=== PATIENT | female | born 1995 | race Caucasian/White ===

== ENCOUNTER → 2019-08-28 08:18 | Outpatient (CLI) | payer MEDICAID, SELFPAY ==
--- NOTE | 2019-08-28 08:23 | US_ITS ---
PROCEDURE: US OB <= 14 WEEKS FETUS CLINICAL INDICATION: US OB Dates COMPARISON: No exams were available for comparison FINDINGS: There is a single live fetus in variable position. Average ultrasound age is 15 weeks 4 days with estimated due date by ultrasound of 02/15/2020. The following parameters are obtained: BPD 15 weeks/4 days, OFD 14 weeks/6 days, HC 15 weeks/1 day, AC 15 weeks/5 days, FL 15 weeks/3 days. Heart rate is 146 BPM. Placenta is anterior. Cervix is closed measuring 2.8 cm transabdominal IMPRESSION: Live IUP at 15 weeks 4 days Estimated due date by Ultrasound is 02/15/2020 Dictated by: Vini Morales MD 08/28/2019 11:27 Electronically signed by Vini Morales MD in [place] 08/28/2019 11:27
== END ==
PROVIDERS: PCP Nurse Practitioner Family; Visit Provider Nurse Practitioner Obstetrics & Gynecology
DX: O26.841 Uterine size-date discrepancy, first trimester (principal)
CPT/HCPCS: 76801

== ENCOUNTER → 2019-09-21 10:09 | Outpatient (CLI) | payer MEDICAID, SELFPAY ==
[2019-09-21 10:41] LABS: Basophils % 0.1 % (0.1-2.0); Eosinophils # 0.1 K/mm3 (0.0-0.4); Eosinophils % 0.4 % (0.1-12.0); Hematocrit 33.5 % (37.0-47.0); Hemoglobin 11.2 g/dL (12.2-16.2); Lymphocytes % 12.6 % (10-50); Mean Corpuscular HGB Conc 33.5 g/dL (31.8-35.4); Mean Corpuscular Hemoglobin 29.8 pg (27.0-31.2); Mean Corpuscular Volume 88.9 fl (81-99); Mean Platelet Volume 7.9 fl (7.4-10.4); Monocytes # 0.5 K/mm3 (0.1-1.0); Monocytes % 3.1 % (1.7-9.3); Neutrophils # 13.2 K/mm3 (1.8-7.8); Neutrophils % 83.8 % (37.0-80.0); Platelet Count 247 K/mm3 (142-424); Red Blood Count 3.76 M/mm3 (4.20-5.40); Red Cell Distribution Width 13.6 % (11.5-17.5); White Blood Count 15.7 K/mm3 (4.8-10.8)
[2019-09-21 10:56] LABS: MANUAL DIFFERENTIAL MANUAL DIFFERENTIAL (MANUAL DIFF)
[2019-09-21 12:54] LABS: Lymphocytes % 11 % (10-50); Monocytes % 2 % (2-9); Neutrophils % 87 % (42-76); Total Cells Counted 100
[2019-09-21 12:55] LABS: Platelet Estimate Normal; RBC Morphology Normal
[2019-09-22 08:43] LABS: Rapid Plasma Reagin Ab Titer Non Reactive (NonRea<1:1)
[2019-09-22 17:02] LABS: HIV Screen 4th Generation wRfx Non Reactive (Non Reactive); Hepatitis B Surface Antigen Negative (Negative); Hepatitis C Antibody <0.1 s/co ratio (0.0-0.9); Rubella Antibodies, IgG 1.75 index (Immune >0.99)
== END ==
PROVIDERS: Visit Provider Nurse Practitioner Obstetrics & Gynecology
DX: Z34.90 Encounter for supervision of normal pregnancy, unspecified, unspecified trimester (principal)
CPT/HCPCS: 36415; 85007; 85025; 86592; 86703; 86762; 86850; 87340; 87380; G0432

== ENCOUNTER → 2019-09-29 12:44 | Outpatient (CLI) | payer MEDICAID, SELFPAY ==
--- NOTE | 2019-09-29 12:44 | US_ITS ---
PROCEDURE: US OB /MATERNAL DETAIL CLINICAL INDICATION: 20 wk. u/s Anatomy scan COMPARISON: US OB <= 14 WEEKS FETUS from 08/28/2019 FINDINGS: Single viable intrauterine gestation. Cephalic position. Placenta: Anteriorplacenta grade 1. There is average amount fluid. The cervix appears satisfactory. Closed and measuring 3 cm in length. Complete survey performed and was unremarkable on the submitted images as in PACS. No discrete anomalies identified on survey imaging by technologist. Active fetus. Three-vessel cord with satisfactory umbilical cord insertion. 4- chamber heart noted. Survey of brain & ventricles Unremarkable. Face and neck survey unremarkable. Diaphragm and chest views unremarkable. Abdomen: Both kidneys noted and unremarkable. Stomach noted and satisfactory. Spine: Survey of the spine satisfactory with no anomalies identified nor imaged. Both arms and legs noted. Amniotic Fluid: Adequate. Maternal adnexa: No significant findings. Measurements: Average ultrasound age 20weeks 5days. Gestational Age 20 weeks 2 days Estimated due date by ultrasound age 0602/11/2020. Estimated weight 362g BPD = 20weeks 5days OFD = 21 weeks 2 days HC = 20weeks 2days AC = 20weeks 3days FL = 21weeks Growth Percentile= 61% Heart Rate = 138bpm Cerebellum = 19weeks 6days Humerus = 20weeks 3days HC/AC is 1.18 CI is 0.76 FL/BPD is 0.71 FL/AC is 0.23 IMPRESSION: Live intrauterine gestation with an average ultrasound age 20 weeks 5 days. No obvious anomalies. All parameters correlate. Please see above for detail. Dictated by: Vini Morales MD 09/29/2019 15:54 Electronically signed by Vini Morales MD in [place] 09/29/2019 15:54
== END ==
PROVIDERS: PCP Family Medicine; Visit Provider Nurse Practitioner Obstetrics & Gynecology
DX: Z34.90 Encounter for supervision of normal pregnancy, unspecified, unspecified trimester (principal)
CPT/HCPCS: 76811

== ENCOUNTER 2019-12-06 10:05 | Outpatient (CLI) | payer MEDICAID, SELFPAY ==
[2019-12-06 11:21] LABS: Glucose,Fasting 80 mg/dl (74-100)
[2019-12-06 12:06] VITALS: BP 137/76; PULSE 88; RESP 18; TEMP 36.6; O2SAT 97
[2019-12-06 12:13] LABS: Glucose 1 Hour 135 mg/dL (74-100)
== END 2019-12-06 12:06 | disposition home or self-care (01) ==
LOC: LAB 10:05 → INF 11:53
PROVIDERS: Visit Provider Nurse Practitioner Obstetrics & Gynecology
DX: Z34.90 Encounter for supervision of normal pregnancy, unspecified, unspecified trimester (principal)
CPT/HCPCS: 36415; 82951; 96372; J2790

== ENCOUNTER → 2020-01-11 12:41 | Outpatient (CLI) | payer MEDICAID, SELFPAY ==
--- NOTE | 2020-01-11 12:41 | US_ITS ---
PROCEDURE: US OB /MATERNAL DETAIL CLINICAL INDICATION: LGA Large for gestational age COMPARISON: US OB /MATERNAL DETAIL from 09/29/2019 FINDINGS: There is a single live intrauterine present. Cervix is closed and measures 3 cm. Fetus is in cephalic presentation. Placenta is anterior and grade 2. No previa or abruption. The following parameters are obtained: Measurements: Average ultrasound age 36weeks 4days. Gestational Age 36weeks 4days Estimated due date by ultrasound age 0602/04/2020. Estimated weight 2,829g this is 73 percentile BPD = 37weeks 6days OFD = 36 weeks 5 days HC = 36weeks 4days AC = 35weeks 6days FL = 35weeks 5days Growth Percentile= 54Percent% Heart Rate = 163bpm HC/AC is 1.01 CI is 0.83 FL/BPD is 0.75 FL/AC is 0.22 Amniotic fluid index is 18 cm Biophysical profile is 8 of 8 IMPRESSION: Live IUP at 36 weeks 4 days with an estimated weight 2829 g which is 73 percentile Normal OCRTES of 18 cm Biophysical profile 8 of 8 Dictated by: Vini Morales MD 01/11/2020 14:02 Electronically signed by Vini Morales MD in [place] 01/11/2020 14:02
== END ==
PROVIDERS: PCP Nurse Practitioner Obstetrics & Gynecology; Visit Provider Nurse Practitioner Obstetrics & Gynecology
DX: O36.60X0 Maternal care for excessive fetal growth, unspecified trimester, not applicable or unspecified (principal)
CPT/HCPCS: 76811; 76819

== ENCOUNTER → 2020-01-19 14:44 | Outpatient (CLI) | payer MEDICAID, SELFPAY | PROVIDERS: Visit Provider Nurse Practitioner Obstetrics & Gynecology | DX: Z34.90 Encounter for supervision of normal pregnancy, unspecified, unspecified trimester (principal) | CPT/HCPCS: 86403 ==

== ENCOUNTER 2020-01-30 12:28 | Outpatient (CLI) | payer MEDICAID, SELFPAY ==
[2020-01-30 12:37] VITALS: BMI 46.6
[2020-01-30 13:02] LABS: Microscopic, Urine URINE MICROSCOPIC (MICROSCOPIC)
[2020-01-30 13:06] LABS: Appearance,Urine CLOUDY (Clear); Bilirubin,Urine Negative (Negative); Blood, Urine TRACE-L (Negative); Color,Urine DK YELLOW (Yellow); Glucose,Urine (UA) Negative (Negative); Ketones,Urine Negative (Negative); Leukocyte Esterase,Urine 2+ (Negative); Nitrate,Urine Negative (Negative); Protein,Urine Negative (Negative); Specific Gravity, Urine >= 1.030 (1.005-1.030); Urobilinogen,Urine 0.2 EU/dl (0.2)
[2020-01-30 13:07] VITALS: BP 132/86; PULSE 123; RESP 20; TEMP 37.3; O2SAT 96; BMI 46.6
[2020-01-30 13:14] LABS: Fetal Membrane Rupture (Rapid) Negative (Negative)
[2020-01-30 13:16] LABS: Bacteria,Urine 1+ /lpf; Barbiturates Screen,Urine Negative ng/ml (<200); Benzodiazepines Screen,Urine Negative ng/ml (<200); WBC,Urine 20-50 #/hpf (0-3)
[2020-01-30 13:17] LABS: Amphetamine/Metha Screen,Urine Negative ng/ml (<1000)
[2020-01-30 13:18] LABS: Cannabinoid Screen,Urine Negative ng/ml (<50); Cocaine Screen,Urine Negative ng/ml (<300)
[2020-01-30 13:19] LABS: Methadone Screen,Urine Negative ng/ml (<300); Opiate Screen,Urine Negative ng/ml (<300)
[2020-01-30 13:20] LABS: Phencyclidine Screen,Urine Negative ng/ml (<25)
== END 2020-01-30 14:00 | disposition home or self-care (01) ==
LOC: OBOUT 12:34 → OB 12:34
PROVIDERS: Visit Provider Nurse Practitioner Obstetrics & Gynecology
DX: O60.03 Preterm labor without delivery, third trimester (principal); Z3A.38 38 weeks gestation of pregnancy
CPT/HCPCS: 59025; 80305; 81001; 84112; 87086

== ENCOUNTER → 2020-01-31 12:26 | Outpatient (CLI) | payer MEDICAID, SELFPAY ==
--- NOTE | 2020-01-31 12:26 | US_ITS ---
PROCEDURE: US OB BIOPHYSICAL PROFILE CLINICAL INDICATION: decreased movement Decreased movement TECHNIQUE: FINDINGS: The following parameters are obtained: Average ultrasound age is Average 37weeks 6days Estimated due date by ultrasound is 02/15/2020. Estimated weight is 3,344g. This is 47th percentile BPD: 38 weeks 0 days OFD: 38 weeks 1 day HC: 37 weeks 0 days AC: 38 weeks 1 day FL: 38 weeks 0 days heart rate: 142bpm bpm. HC/AC: 0.95 Cephalic index: 0.82 FL/BPD: 0.79 FL/AC: 0.22 Amniotic fluid index: 15.25cm Qualitative AFV: 2 breathing movements: 2 Gross body movements: 2 Tone: 2 Biophysical profile score: 8 The fetus is in cephalic presentation. Placenta is anterior and grade 2. Cervix is closed measuring 3.5 cm transabdominal of IMPRESSION: Live IUP which is in cephalic presentation with an average ultrasound age 37 weeks 6 days. weight is 3344 g which is 47th percentile. Biophysical profile is 8 of 8. Amniotic fluid index is 15 cm. Dictated by: Vini Morales MD 01/31/2020 13:20 Electronically signed by Vini Morales MD in [place] 01/31/2020 13:20
== END ==
PROVIDERS: Visit Provider Nurse Practitioner Obstetrics & Gynecology
DX: O36.8190 Decreased fetal movements, unspecified trimester, not applicable or unspecified (principal)
CPT/HCPCS: 76816; 76819

== ENCOUNTER 2020-02-05 05:31 | Inpatient (IN) | payer MEDICAID, SELFPAY ==
[2020-02-05 05:35] VITALS: BMI 46.0
[2020-02-05 06:24] VITALS: BP 135/85; PULSE 97; RESP 18; TEMP 36.9; O2SAT 97; BMI 46.0
[2020-02-05 06:42] LABS: Microscopic, Urine URINE MICROSCOPIC (MICROSCOPIC)
[2020-02-05 06:44] LABS: Appearance,Urine CLEAR (Clear); Bilirubin,Urine Negative (Negative); Blood, Urine TRACE-L (Negative); Color,Urine YELLOW (Yellow); Glucose,Urine (UA) Negative (Negative); Ketones,Urine TRACE (Negative); Leukocyte Esterase,Urine 1+ (Negative); Nitrate,Urine Negative (Negative); Protein,Urine Negative (Negative); Urobilinogen,Urine 0.2 EU/dl (0.2)
[2020-02-05 06:55] LABS: Bacteria,Urine 1+ /lpf; Benzodiazepines Screen,Urine Negative ng/ml (<200)
[2020-02-05 06:56] LABS: Amphetamine/Metha Screen,Urine Negative ng/ml (<1000)
[2020-02-05 06:57] LABS: Barbiturates Screen,Urine Negative ng/ml (<200); Cannabinoid Screen,Urine Negative ng/ml (<50)
[2020-02-05 06:58] LABS: Cocaine Screen,Urine Negative ng/ml (<300)
[2020-02-05 06:59] LABS: Methadone Screen,Urine Negative ng/ml (<300); Opiate Screen,Urine Negative ng/ml (<300)
[2020-02-05 07:00] LABS: Phencyclidine Screen,Urine Negative ng/ml (<25)
[2020-02-05 07:09] LABS: Basophils % 0.1 % (0.1-2.0); Eosinophils # 0.1 K/mm3 (0.0-0.4); Eosinophils % 0.8 % (0.1-12.0); Hematocrit 31.3 % (37.0-47.0); Hemoglobin 10.2 g/dL (12.2-16.2); Lymphocytes # 2.4 K/mm3 (0.7-4.5); Lymphocytes % 16.9 % (10-50); Mean Corpuscular HGB Conc 32.7 g/dL (31.8-35.4); Mean Corpuscular Hemoglobin 28.4 pg (27.0-31.2); Mean Platelet Volume 8.5 fl (7.4-10.4); Monocytes # 0.4 K/mm3 (0.1-1.0); Neutrophils # 11.4 K/mm3 (1.8-7.8); Neutrophils % 79.2 % (37.0-80.0); Platelet Count 220 K/mm3 (142-424); Red Cell Distribution Width 15.6 % (11.5-17.5); White Blood Count 14.4 K/mm3 (4.8-10.8)
--- NOTE | 2020-02-05 07:27 | HMH.LABNOT ---
Labor Note - Subjective: Date: 02/05/20 Time: 07:27 regular contraction - Objective: NST:: Reactive Contractions:: every 2-3 minutes Cervical Dilation:: 3-4 Effacement:: 90% Station: -1 Membranes: artificially ruptured Comment:: There was clear fluid - Fetus: Monitoring?: Yes monitoring type:: Internal and External Comment:: I inserted an IUPC - Assessment: Labor progressing?: Yes Cephalopelvic disproportion?: No Patient Problems: All Active Problems (Acute) - Plan: Anesthesia for epidural?: Yes Continue to labor down?: Yes Plan for ?: No Continue to monitor?: Yes Start pushing?: No
[2020-02-05 07:31] VITALS: BP 143/71; PULSE 87; RESP 18; TEMP 36.6; O2SAT 99
[2020-02-05 07:49] LABS: Coronavirus 19 IgG Antibody Negative (Negative); Coronavirus 19 IgM Antibody Negative (Negative)
--- NOTE | 2020-02-05 09:12 | HMH.ANESCL ---
[facility] Anesthesia Checklist - Structural Data Admitted From: Inpatient Planned Operative Procedure/s: labor epidural Consent for Planned Operative Procedure(s) Verified: Yes - Airway Assessment C-Spine Mobility Assessed: Yes TMJ Mobility Assessed: Yes Dentition: Good Dentition - Neurological Assessment Level of Consciousness: Awake, Alert, Appropriate - Anesthesia Plan Anesthesia Risk discussed: Yes Anesthesia Plan: Verified ASA Class: II Anesthesia Type: Epidural [facility] History I have reviewed the patient's past medical history: Yes Medical History: Reports:: MRSA Denies:: Diabetes Mellitus Type 2, Hypertension *Have you ever received a pneumonia vaccine?: No *Have you received a flu vaccine this season?: No Anesthesia experience/problems:: none Other Surgeries: Yes: No Previous Surgery. No: Amputation: No Fractures: No - *Social History Smoking Status: Current every day smoker Tobacco Type: cigarettes Alcohol Intake: never Substance Use Type: denies use *Occupational Status:: unemployed *Travel in the last 8 weeks: None Family Hx:: No significant family history Para: 0
--- NOTE | 2020-02-05 10:21 | HMH.LABNOT ---
Labor Note - Subjective: Date: 02/05/20 Time: 10:21 regular contraction - Objective: NST:: Reactive Contractions:: every 2-3 minutes Cervical Dilation:: 5 Effacement:: 100% Station: 0 Membranes: artificially ruptured - Fetus: Monitoring?: Yes monitoring type:: Internal and External - Assessment: Labor progressing?: Yes Cephalopelvic disproportion?: No Patient Problems: All Active Problems (Acute) - Plan: Anesthesia for epidural?: Yes Continue to labor down?: Yes Plan for ?: No Continue to monitor?: Yes Start pushing?: No
[2020-02-05 12:00] VITALS: BP 118/67; PULSE 87; TEMP 36.7
--- NOTE | 2020-02-05 13:52 | HMH.LABNOT ---
Labor Note - Subjective: Date: 02/05/20 Time: 12:05 regular contraction - Objective: NST:: Reactive Contractions:: every 2-3 minutes Cervical Dilation:: 6-7 Effacement:: 100% Station: 0 Membranes: artificially ruptured - Fetus: Monitoring?: Yes monitoring type:: Internal and External - Assessment: Labor progressing?: Yes Cephalopelvic disproportion?: No Patient Problems: All Active Problems (Acute) - Plan: Anesthesia for epidural?: Yes Continue to labor down?: Yes Plan for ?: No Continue to monitor?: Yes Start pushing?: No
--- NOTE | 2020-02-05 13:53 | HMH.LABNOT ---
Labor Note - Subjective: Date: 02/05/20 Time: 13:53 regular contraction - Objective: NST:: Reactive Contractions:: every 2-3 minutes Cervical Dilation:: 9-10 Effacement:: 100% Station: +1 Membranes: artificially ruptured - Fetus: Monitoring?: Yes monitoring type:: Internal and External - Assessment: Labor progressing?: Yes Cephalopelvic disproportion?: No Patient Problems: All Active Problems (Acute) - Plan: Anesthesia for epidural?: Yes Continue to labor down?: Yes Plan for ?: No Continue to monitor?: Yes Start pushing?: Yes Comment:: The head is well down but there are still an anterior lip. We allow the head to come down a little bit more and then will have her start pushing. We will plan a vaginal delivery.
[2020-02-05 14:30] LABS: Cord Blood PH 7.29 (7.35-7.45)
--- NOTE | 2020-02-05 16:06 | P.PCN_ITS ---
- Delivery Note Delivery Date:: 02/05/20 Delivery Time:: 14:08 Anesthesia Type: Epidural Was labor medically induced?: Yes Induction method: per pitocin protocol Gestational age (weeks): 39 Infant delivered prior to 39 weeks?: No Infant Gender: Male at 1 minute: 6 at 5 minutes: 8 Delivery Procedure:: She is a 24-year-old 1 para 0 at 39 weeks gestational age. She had a lot of pressure and was found to be 3 to 4 cm dilated. As result of that we elected to induce her labor. She was started on IV oxytocin had her membranes ruptured. She progressed under labor epidural to full dilation and delivered spontaneously a liveborn male child at 2:08 PM in the afternoon of February 05, 2020. On deliver the head there was a loose nuchal cord which was easily reduced. This was followed by the anterior shoulder and the rest the 's body atraumatically. The baby was quite vigorous so we allowed the cord to continue to pulsate for approximately 1 minute. The cord was then doubly clamped and cut and the was placed on the mother's abdomen for further care. The nurse assigned Apgars of 6 at 1 minute and 8 at 5 minutes. We then obtained cord blood as well as cord pH. She received IV oxytocin using gentle traction on the cord and countertraction on the fundus I was able to easily deliver the placenta intact. Had a normal three-vessel cord. She had a first-degree vaginal laceration that was repaired with interrupted 3-0 Vicryl Rapide suture. She has O Rh- blood, was rubella immune and was group B streptococcus negative. She plans to bottlefeed. Her telecom sales consultant is Dr. Mari. Estimated blood loss was approximately 500 cc. Laceration:: vaginal Placental Delivery Description: Spontaneous
[2020-02-05 16:10] VITALS: BP 115/63; PULSE 93; RESP 18; TEMP 37.2; O2SAT 96
[2020-02-05 20:33] VITALS: BP 115/61; PULSE 90; RESP 18; TEMP 37; O2SAT 98
[2020-02-06 03:58] VITALS: BP 105/63; PULSE 85; RESP 16; TEMP 36.9; O2SAT 98
[2020-02-06 06:11] LABS: Hematocrit 26.8 % (37.0-47.0)
[2020-02-06 07:47] VITALS: BP 127/66; PULSE 98; RESP 18; TEMP 36.7; O2SAT 98
--- NOTE | 2020-02-06 09:03 | HMH.ACPN2 ---
Internal Medicine - PN: Subj *Date: 02/06/20 *Time: 09:03 Interval history: She is doing well this morning. She is eating and drinking and ambulating. She is breast-feeding. Her lochia is normal. Her pain is well controlled. Exam Vital signs and Labs for Last 24 Hours: Temp Pulse Resp BP Pulse Ox 98.1 F 98 H 18 127/66 98 02/06/20 07:47 02/06/20 07:47 02/06/20 07:47 02/06/20 07:47 02/06/20 07:47 Laboratory Results - last 24 hr 02/05/20 14:20: Cord ABG pH 7.29 L 02/06/20 05:50: Hgb 9.0 L D, Hct 26.8 L I & O for Last 24 hours: Intake & Output 02/03/20 02/04/20 02/05/20 02/06/20 11:59 11:59 11:59 11:59 Weight 236 lb Microbiology Reports for the Last 24 Hours: Microbiology 02/05/20 05:55 Urine,Clean Catch Urine Culture - Final Multiple organisms, suggests contamination. - Constitutional no acute distress - *Routine HEENT Exam Head: Present: normocephalic Eye: Present: EOMI, PERRL ENT: Present: mucous membranes moist Assessment and Plan (1) Normal delivery Current visit: Yes Status: Acute Category: Medical Code(s): O80 - Encounter for full-term uncomplicated delivery - Assessment and plan all Dx Assessment and Plan for all problems:: She is doing well this morning. We will plan to send her home tomorrow.
[2020-02-06 12:00] VITALS: BP 111/62; PULSE 88; RESP 16; TEMP 36.8; O2SAT 98
[2020-02-06 16:42] VITALS: BP 115/64; PULSE 79; RESP 18; TEMP 37.3; O2SAT 98
--- NOTE | 2020-02-07 08:22 | HMH.DCSUM ---
General - General Admission date:: 02/05/20 Discharge date: 02/07/20 HPI HPI: She is a 24-year-old 1 now para 1 who is 39 weeks gestational age. She was having contractions and pressure and as result of that we elected to induce her labor at term. Hospital Course Hospital Course: She was started on IV oxytocin had her membranes ruptured. Under labor epidural she progressed to full dilation and delivered spontaneously a liveborn male child at 2:08 PM in the afternoon of February 05, 2020. The baby was a liveborn male child weighing 8 pounds 9 ounces and was 19-1/2 inches long. He had Apgars of 6 at 1 minute and 8 at 5 minutes. She has done well and has remained afebrile with her hospitalization. She is eating and drinking and ambulating. She is breast-feeding. Her intelligence officer Dr. Mari. She has O Rh- blood, she is rubella immune and was group B streptococcus negative. Her baby had Rh- blood so she did not require RhoGam. She is discharged home to follow-up with me in approximately 2 weeks time. She will continue with her vitamins and iron. She was given the usual instructions with respect to limiting her activity, driving and sexual activity. She is taking idox-iet-qtzhsmu analgesics. Her condition on discharge is stable and improved. Rhogam Administration: Not Indicated Objective Vital signs: Temp Pulse Resp BP Pulse Ox 99.2 F 79 18 115/64 98 02/06/20 16:42 02/06/20 16:42 02/06/20 16:42 02/06/20 16:42 02/06/20 16:42 no acute distress - *Routine HEENT Exam Head: Present: normocephalic Eye: Present: EOMI, PERRL ENT: Present: mucous membranes moist DS: Diagnosis - Discharge Diagnosis (1) Normal delivery Status: Acute Discharge Plan - Patient Discharge Instructions ACTIVITY: No heavy lifting DIET: continue same diet - Follow up Plan Disposition: Home, Self-Prison Medications: Home Medications Medication Instructions Recorded Confirmed Type prenat.vits,brandi,[id number] 1 tab PO DAILY 08/24/19 02/05/20 History Aspirin 81 mg PO DAILY 01/30/20 02/05/20 History Ferrous Sulfate 325 mg PO DAILY 01/30/20 02/05/20 History Prescriptions/Medication Reconciliation: Continued prenat.vits,brandi,[id number]-[id number] 1 tab PO DAILY Aspirin 81 mg PO DAILY Ferrous Sulfate 325 mg PO DAILY - Problem Reconciliation Problems Reviewed?: Yes
[2020-02-07 08:33] VITALS: BP 133/76; PULSE 95; RESP 18; TEMP 36.8; O2SAT 98
== END 2020-02-07 11:00 | disposition home or self-care (01) | DRG 807 ==
PROVIDERS: Admitting Provider Nurse Practitioner Obstetrics & Gynecology; Visit Provider Nurse Practitioner Obstetrics & Gynecology
DX: O70.0 First degree perineal laceration during delivery (principal); Z37.0 Single live birth; Z3A.39 39 weeks gestation of pregnancy
CPT/HCPCS: 59409; 36415; 59025; 80305; 81001; 82800; 85014; 85018; 85025; 86328; 86850; 87086; 90715; 94761; C1758

== ENCOUNTER 2020-02-09 23:18 | Emergency (ER) | payer MEDICAID, SELFPAY ==
[2020-02-09 23:21] VITALS: BP 140/90; PULSE 110; RESP 16; TEMP 39.2; O2SAT 99; BMI 44.9
--- NOTE | 2020-02-09 23:41 | HMH.EDFEV ---
ED Disposition Clinical Impression: SIRS (systemic inflammatory response syndrome) UTI (urinary tract infection) Qualifiers: Urinary tract infection type: site unspecified Hematuria presence: without hematuria Qualified Code(s): N39.0 - Urinary tract infection, site not specified Disposition: Home, Self-Care Condition on Discharge: Good Instructions: DI for Fever (Symptom) -- Adult Additional Instructions: fluids and use meds as directed and call ob for follow up and culture results Prescriptions: cephALEXin [Keflex 500mg Cap] 500 mg PO TID #30 cap Transmission Status: Pending to [facility] Referrals: Provider,Referral, [Primary Care Provider] - - Critical Care Critical Care Time: No Attestation: On 02/09/20, the high probability of a clinically significant, sudden or life threatening deterioration of the following system(s) required my full and direct attention, intervention and personal management. The time I documented below is in addition to time spent performing reported procedures but includes the following listed in this critical care notation. Medical Decision Making - Medical Records Medical records reviewed: Yes: I reviewed the patient's medical records. - Jamie Inquiry Pt receiving controlled substance: No Vital Signs: 02/09/20 23:21 02/09/20 23:55 02/10/20 00:03 Temperature 102.5 F H Temperature Source Oral Pulse Rate [Left Radial] 110 H 82 84 Respiratory Rate 16 18 18 Blood Pressure [Right Arm] 140/90 133/78 127/81 Blood Pressure Mean [Right Arm] 106 96 96 Blood Pressure Source [Right Arm] Automatic Cuff Blood Pressure Position [Right Arm] Sitting 02 Sat by Pulse Oximetry 99 100 100 Oxygen Delivery Method Room Air Room Air Room Air - Lab Data Lab results reviewed: Yes: I reviewed the patient's lab results. Lab Results 02/09/20 23:40: WBC 13.8 H, RBC 3.17 L, Hgb 9.0 L, Hct 28.4 L, MCV 89.5, MCH 28.3, MCHC 31.6 L, RDW 15.9, Plt Count 235, MPV 8.1, Neut % (Auto) 78.8, Lymph % (Auto) 14.4, [place] % (Auto) 5.1, Eos % (Auto) 1.6, Baso % (Auto) 0.2, Neut # (Auto) 10.8 H, Lymph # (Auto) 2.0, [place] # (Auto) 0.7, Eos # (Auto) 0.2, Baso # (Auto) 0.0 02/09/20 23:40: Sodium 135 L, Potassium 3.6, Chloride 104, Carbon Dioxide 25, Anion Gap 9.6, BUN 5 L, Creatinine 0.70, Estimated Creat Clear 91, Estimated GFR 105, Est GFR ( Amer) 127, Glucose 98, Calcium 8.3 L, Total Bilirubin 0.3, AST 44 H, ALT 52, Alkaline Phosphatase 112, Total Protein 6.3, Albumin 3.4 L, Globulin 2.9, Albumin/Globulin Ratio 1.2 02/09/20 23:40: Lactate 1.2 02/09/20 23:49: Urine Color Yellow, Urine Appearance Clear, Urine pH 7.0, Ur Specific [place] 1.020, Urine Protein Trace, Urine Glucose (UA) Negative, Urine Ketones Negative, Urine Blood 3+, Urine Nitrate Negative, Urine Bilirubin Negative, Urine Urobilinogen 1.0, Ur Leukocyte Esterase 2+ A, Urine RBC 50-100, Urine WBC 50-100, Ur Squamous Epith Cells 5-10 Result diagrams: 02/09/20 23:40 02/09/20 23:40 Orders (Tests/Meds): ED MEDICATIONS Generic Name Dose Route Start Last Admin Trade Name Freq PRN Reason Stop Dose Admin Sodium Chloride 1,000 mls @ 999 mls/hr 02/09/20 23:45 02/09/20 23:41 Sod Chlor 0.9% 1000ml Bag IV 02/10/20 00:45 999 mls/hr .Q1H1M APRIL Administration Ceftriaxone Sodium 1 gm/ 50 mls @ 100 mls/hr 02/10/20 00:45 Sodium Chloride IV 02/24/20 00:44 Q24H APRIL Protocol Discontinued Medications Generic Name Dose Route Start Last Admin Trade Name Freq PRN Reason Stop Dose Admin Acetaminophen 1,000 mg 02/09/20 23:39 02/09/20 23:40 Tylenol 500mg Tablet PO 02/09/20 23:40 1,000 mg ONCE ONE Administration ORDERS Category Date Time Status Blood Culture Stat Micro 02/09/20 23:40 Received Urine Culture Stat Micro 02/09/20 23:49 Received Fever HPI - General Chief Complaint: Fever Stated Complaint: Headache;Fever (earlier),dizziness, Gave Mon Time Seen by Provider: 02/09/20 23
[2020-02-09 23:55] VITALS: BP 133/78; PULSE 82; RESP 18; O2SAT 100
[2020-02-09 23:57] LABS: Microscopic, Urine URINE MICROSCOPIC (MICROSCOPIC)
[2020-02-09 23:59] LABS: Basophils % 0.2 % (0.1-2.0); Eosinophils # 0.2 K/mm3 (0.0-0.4); Eosinophils % 1.6 % (0.1-12.0); Hematocrit 28.4 % (37.0-47.0); Lymphocytes % 14.4 % (10-50); Mean Corpuscular HGB Conc 31.6 g/dL (31.8-35.4); Mean Corpuscular Hemoglobin 28.3 pg (27.0-31.2); Mean Corpuscular Volume 89.5 fl (81-99); Mean Platelet Volume 8.1 fl (7.4-10.4); Monocytes # 0.7 K/mm3 (0.1-1.0); Monocytes % 5.1 % (1.7-9.3); Neutrophils # 10.8 K/mm3 (1.8-7.8); Neutrophils % 78.8 % (37.0-80.0); Platelet Count 235 K/mm3 (142-424); Red Blood Count 3.17 M/mm3 (4.20-5.40); Red Cell Distribution Width 15.9 % (11.5-17.5); White Blood Count 13.8 K/mm3 (4.8-10.8)
[2020-02-10 00:03] VITALS: BP 127/81; PULSE 84; RESP 18; O2SAT 100
[2020-02-10 00:03] LABS: Appearance,Urine CLEAR (Clear); Bilirubin,Urine Negative (Negative); Blood, Urine 3+ (Negative); Color,Urine YELLOW (Yellow); Glucose,Urine (UA) Negative (Negative); Ketones,Urine Negative (Negative); Leukocyte Esterase,Urine 2+ (Negative); Nitrate,Urine Negative (Negative); Protein,Urine TRACE (Negative)
[2020-02-10 00:07] LABS: Alanine Aminotransferase 52 U/L (12-78); Albumin Level 3.4 g/dl (3.5-5.0); Albumin/Globulin Ratio 1.2 (1.1-1.8); Alkaline Phosphatase 112 U/L (38-126); Anion Gap 9.6 mEq/L (5-15); Aspartate Amino Transferase 44 U/L (14-36); Bilirubin,Total 0.3 mg/dl (0.2-1.3); Blood Urea Nitrogen 5 mg/dl (7-17); Calcium 8.3 mg/dl (8.4-10.2); Carbon Dioxide 25 mmol/L (22.0-30.0); Chloride 104 mmol/L (98-107); Creatinine Clearance Estimated 91 mL/min (50-200); Estimated Glomerular Filt Rate 105 ml/min (>60); GFR (African American) 127 ML/MIN (>60); Globulin 2.9 g/dL (1.3-3.2); Glucose 98 mg/dl (74-100); Lactic Acid 1.2 mmol/L (0.7-2.1); Potassium 3.6 mmoL/L (3.5-5.1); Sodium 135 mmol/L (136-145); Total Protein,Serum 6.3 g/dl (6.3-8.2)
[2020-02-10 00:11] LABS: RBC,Urine 50-100 #/hpf (0-3); WBC,Urine 50-100 #/hpf (0-3)
[2020-02-10 00:30] VITALS: TEMP 37.5
--- NOTE | 2020-02-10 00:55 | PC.NURSE ---
pt transported to radiology via wheelchair.
[2020-02-10 01:17] VITALS: BP 119/72; PULSE 97; RESP 16; TEMP 37.2; O2SAT 98
== END 2020-02-10 01:21 | disposition home or self-care (01) ==
PROVIDERS: Emergency Provider Emergency Medicine
DX: N39.0 Urinary tract infection, site not specified (principal); R65.10 Systemic inflammatory response syndrome (SIRS) of non-infectious origin without acute organ dysfunction
CPT/HCPCS: 80053; 81001; 83605; 85025; 87040; 87086; 96365; 96367; 99284

== ENCOUNTER 2021-02-11 10:43 | Emergency (ER) | payer MEDICAID, SELFPAY ==
[2021-02-11 10:46] VITALS: BP 124/79; PULSE 88; RESP 20; TEMP 37; O2SAT 100; BMI 42.9
--- NOTE | 2021-02-11 10:51 | HMH.EDGENADL ---
ED Disposition Clinical Impression: Pelvic pain Qualifiers: Weeks of gestation: less than 8 weeks Qualified Code(s): Z3A.01 - Less than 8 weeks gestation of Disposition: Home, Self-Care Condition on Discharge: Good Additional Instructions: Follow-up urine culture results from Dr. Patel for your primary care provider in 2 to 3 days. Return emergency department for any severe abdominal pain or heavy vaginal bleeding. Referrals: Provider,Referral, [Primary Care Provider] - - Critical Care Critical Care Time: No Attestation: On , the high probability of a clinically significant, sudden or life threatening deterioration of the following system(s) required my full and direct attention, intervention and personal management. The time I documented below is in addition to time spent performing reported procedures but includes the following listed in this critical care notation. Medical Decision Making - Medical Records Medical records reviewed: Yes: I reviewed the patient's medical records. MR Comment: Reviewed prior urine culture results, all have shown multiple organisms suggesting contamination. - Jamie Inquiry Pt receiving controlled substance: No Vital Signs: 02/11/21 10:46 Temperature 98.6 F Temperature Source Oral Pulse Rate [Left Radial] 88 Respiratory Rate 20 Blood Pressure [Right Arm] 124/79 Blood Pressure Mean [Right Arm] 94 Blood Pressure Source [Right Arm] Automatic Cuff Blood Pressure Position [Right Arm] Sitting 02 Sat by Pulse Oximetry 100 Oxygen Delivery Method Room Air - Lab Data Lab Results 02/11/21 11:00: Urine Color Yellow, Urine Appearance Clear, Urine pH 6.5, Ur Specific [place] 1.020, Urine Protein Negative, Urine Glucose (UA) Negative, Urine Ketones Negative, Urine Blood Negative, Urine Nitrate Negative, Urine Bilirubin Negative, Urine Urobilinogen 0.2, Ur Leukocyte Esterase 1+ A, Urine RBC None, Urine WBC 5-10, Ur Squamous Epith Cells 3-5, Urine Bacteria 1+ 02/11/21 11:00: Urine HCG, Qual Positive 02/11/21 11:00: WBC 8.9, RBC 4.52, Hgb 13.5, Hct 40.0, MCV 88.3, MCH 29.8, MCHC 33.7, RDW 13.2, Plt Count 246, MPV 7.8, Neut % (Auto) 65.0, Lymph % (Auto) 26.2, [place] % (Auto) 6.2, Eos % (Auto) 2.3, Baso % (Auto) 0.3, Neut # (Auto) 5.8, Lymph # (Auto) 2.3, [place] # (Auto) 0.6, Eos # (Auto) 0.2, Baso # (Auto) 0.0 02/11/21 11:00: HCG, Quant 1889 H Result diagrams: 02/11/21 11:00 Orders (Tests/Meds): ORDERS Category Date Time Status Urine Culture Stat Micro 02/11/21 11:00 Received US OB transvaginal Stat Ultrasound 02/11/21 11:17 Ordered - US Data US Images: Pelvis Findings Narrative: As per [facility] procedure, ultrasound report received from pet care technician: Very small gestational sac in uterus. Small ovarian cyst. No pole or yolk sac seen. General Adult HPI - General Stated complaint: weakness, abdominal pain Time Seen by Provider: 02/11/21 10:52 - History of Present Illness HPI narrative: Intermittent sharp suprapubic pains that last a few seconds for the past couple of days. Not currently in pain. No lightheadedness for 1 week. Took 2 home test yesterday that was positive. Last menstrual period the end of November. If , currently is 2, para 1. No other symptoms, no vaginal bleeding, no fever, no vomiting, no urinary symptoms, but wants to be checked for urinary tract infection. - Related Data Previous Rx's Medication Instructions Recorded prenat.vits,brandi,[id number]-[id number]-[id number] 1 tab PO DAILY #30 tab 12/05/20 Allergies Allergy/AdvReac Type Severity Reaction Status Date / Time No Known Allergies Allergy Verified 12/05/20 08:33 [facility] History - Hepatitis A Screen Attestation statement:: This patient has been screened for Hepatitis A risk factors. I have reviewed the patient's past medical history: Yes Medical History: Reports:: MRSA Denies:: Diabetes Mellitus Type 2, Hypertension O
[2021-02-11 11:11] LABS: Microscopic, Urine URINE MICROSCOPIC (MICROSCOPIC)
[2021-02-11 11:15] LABS: Appearance,Urine CLEAR (Clear); Bilirubin,Urine Negative (Negative); Blood, Urine Negative (Negative); Color,Urine YELLOW (Yellow); Glucose,Urine (UA) Negative (Negative); Ketones,Urine Negative (Negative); Leukocyte Esterase,Urine 1+ (Negative); Nitrate,Urine Negative (Negative); PH,Urine 6.5 (5.0-8.5); Protein,Urine Negative (Negative); Urobilinogen,Urine 0.2 EU/dl (0.2)
[2021-02-11 11:16] LABS: Basophils % 0.3 % (0.1-2.0); Eosinophils # 0.2 K/mm3 (0.0-0.4); Eosinophils % 2.3 % (0.1-12.0); Hemoglobin 13.5 g/dL (12.2-16.2); Lymphocytes # 2.3 K/mm3 (0.7-4.5); Lymphocytes % 26.2 % (10-50); Mean Corpuscular HGB Conc 33.7 g/dL (31.8-35.4); Mean Corpuscular Hemoglobin 29.8 pg (27.0-31.2); Mean Corpuscular Volume 88.3 fl (81-99); Mean Platelet Volume 7.8 fl (7.4-10.4); Monocytes # 0.6 K/mm3 (0.1-1.0); Monocytes % 6.2 % (1.7-9.3); Neutrophils # 5.8 K/mm3 (1.8-7.8); Platelet Count 246 K/mm3 (142-424); Red Blood Count 4.52 M/mm3 (4.20-5.40); Red Cell Distribution Width 13.2 % (11.5-17.5); Urine Pregnancy, HCG Qual. Positive (Negative); White Blood Count 8.9 K/mm3 (4.8-10.8)
--- NOTE | 2021-02-11 11:17 | US_ITS ---
PROCEDURE: US OB TRANSVAGINAL CLINICAL INDICATION: pelvic pain, , r/o ectopic COMPARISON: US US OB BIOPHYSICAL PROFILE from 01/31/2020 FINDINGS: There is a small anechoic sac within the endometrial canal. This measures 9 x 4 mm. No yolk sac or pole identified. There is a small left ovarian cyst of 14 mm. No cul-de-sac fluid evident. Bilateral ovarian blood flow is noted. IMPRESSION: Small anechoic sac present but no pole or yolk sac. Cannot confirm viability. Suggest short-term follow-up. Ectopic is not excluded based on these findings. Please correlate with follow-up beta HCG and ultrasound Dictated by: Vini Morales MD 02/11/2021 13:22 Vini Morales MD in [place] 02/11/2021 13:22
--- NOTE | 2021-02-11 11:17 | PC.NURSE ---
CAlled radiology to notify or US order
[2021-02-11 11:24] LABS: Bacteria,Urine 1+ /lpf
--- NOTE | 2021-02-11 11:25 | PC.NURSE ---
pt to radiology
[2021-02-11 11:37] LABS: HCG,Quantitative 1889 mIU/ml (0-5.42)
[2021-02-11 11:59] VITALS: BP 107/73; PULSE 84; RESP 19; TEMP 37; O2SAT 100
== END 2021-02-11 12:01 | disposition home or self-care (01) ==
PROVIDERS: Emergency Provider Emergency Medicine
DX: R10.2 Pelvic and perineal pain (principal); Z34.01 Encounter for supervision of normal first pregnancy, first trimester; F17.210 Nicotine dependence, cigarettes, uncomplicated
CPT/HCPCS: 76817; 81001; 81025; 84702; 85025; 87086; 99283

== ENCOUNTER 2021-02-24 00:21 | Emergency (ER) | payer MEDICAID, SELFPAY ==
[2021-02-24 00:23] VITALS: BP 126/79; PULSE 80; RESP 16; TEMP 37.2; O2SAT 97; BMI 40.6
[2021-02-24 00:58] LABS: Microscopic, Urine URINE MICROSCOPIC (MICROSCOPIC)
[2021-02-24 01:03] LABS: Basophils % 0.3 % (0.1-2.0); Eosinophils # 0.3 K/mm3 (0.0-0.4); Eosinophils % 2.5 % (0.1-12.0); Hematocrit 37.5 % (37.0-47.0); Hemoglobin 12.5 g/dL (12.2-16.2); Lymphocytes # 3.4 K/mm3 (0.7-4.5); Lymphocytes % 26.8 % (10-50); Mean Corpuscular HGB Conc 33.4 g/dL (31.8-35.4); Mean Corpuscular Hemoglobin 29.5 pg (27.0-31.2); Mean Corpuscular Volume 88.4 fl (81-99); Mean Platelet Volume 7.7 fl (7.4-10.4); Monocytes # 0.5 K/mm3 (0.1-1.0); Monocytes % 3.6 % (1.7-9.3); Neutrophils # 8.5 K/mm3 (1.8-7.8); Neutrophils % 66.8 % (37.0-80.0); Platelet Count 224 K/mm3 (142-424); Red Blood Count 4.24 M/mm3 (4.20-5.40); Red Cell Distribution Width 13.5 % (11.5-17.5); White Blood Count 12.7 K/mm3 (4.8-10.8)
[2021-02-24 01:08] LABS: Appearance,Urine SL CLOUDY (Clear); Bilirubin,Urine Negative (Negative); Blood, Urine 2+ (Negative); Color,Urine YELLOW (Yellow); Glucose,Urine (UA) Negative (Negative); Ketones,Urine Negative (Negative); Leukocyte Esterase,Urine TRACE (Negative); Nitrate,Urine Negative (Negative); PH,Urine 5.5 (5.0-8.5); Protein,Urine Negative (Negative); Specific Gravity, Urine >= 1.030 (1.005-1.030); Urobilinogen,Urine 0.2 EU/dl (0.2)
[2021-02-24 01:09] LABS: Alanine Aminotransferase 11 U/L (12-78); Albumin Level 4.5 g/dl (3.5-5.0); Albumin/Globulin Ratio 1.7 (1.1-1.8); Alkaline Phosphatase 71 U/L (38-126); Anion Gap 11.8 mEq/L (5-15); Aspartate Amino Transferase 30 U/L (14-36); Bilirubin,Total 0.3 mg/dl (0.2-1.3); Blood Urea Nitrogen 14 mg/dl (7-17); Calcium 8.8 mg/dl (8.4-10.2); Carbon Dioxide 25 mmol/L (22.0-30.0); Chloride 104 mmol/L (98-107); Creatinine Clearance Estimated 186 mL/min (50-200); Estimated Glomerular Filt Rate 104 ml/min (>60); GFR (African American) 125 ML/MIN (>60); Globulin 2.7 g/dL (1.3-3.2); Glucose 96 mg/dl (74-100); Potassium 3.8 mmoL/L (3.5-5.1); Sodium 137 mmol/L (136-145); Total Protein,Serum 7.2 g/dl (6.3-8.2)
[2021-02-24 01:10] LABS: Urine Pregnancy, HCG Qual. Positive (Negative)
[2021-02-24 01:24] LABS: Bacteria,Urine 3+ /lpf; Mucus,Urine 1+ /lpf
[2021-02-24 01:27] LABS: HCG,Quantitative 2945 mIU/ml (0-5.42)
--- NOTE | 2021-02-24 01:38 | US_ITS ---
PROCEDURE INFORMATION: Exam: US , Transvaginal Exam date and time: 02/24/2021 1:38 AM Age: 25 years old Clinical indication: Lmp or gestational age (in weeks): Lmp: 12/08/20; Other: Vaginal bleeding; ; Additional info: Vaginal bleeding 6 weeks preg TECHNIQUE: Imaging protocol: Real-time transvaginal obstetrical ultrasound of the maternal pelvis with image documentation. Transvaginal imaging was used for better evaluation of the fetus, adnexa, and/or cervix. COMPARISON: US OB TRANSVAGINAL 02/11/2021 11:31 AM FINDINGS: Gestation: There is a gestational sac within the uterus but no pole or heart activity are seen on this exam. Both ovaries appear normal. No free fluid in the cul-de-sac. IMPRESSION: Probable impending spontaneous .
[2021-02-24 01:58] VITALS: BP 112/73; PULSE 69; O2SAT 98
[2021-02-24 03:00] VITALS: BP 125/73; PULSE 68; O2SAT 98
[2021-02-24 03:30] VITALS: BP 112/70; PULSE 62; O2SAT 98
--- NOTE | 2021-02-24 04:05 | HMH.EDPREG ---
ED Disposition Clinical Impression: Threatened Qualifiers: Weeks of gestation: less than 8 weeks Qualified Code(s): Z3A.01 - Less than 8 weeks gestation of Disposition: Home, Self-Care Condition on Discharge: Fair Instructions: Threatened Miscarriage Additional Instructions: call dr patel this am Referrals: Provider,MD Estelita [Primary Care Provider] - Bruce Patel MD [Staff Physician] - - Critical Care Critical Care Time: No Attestation: On 02/24/21, the high probability of a clinically significant, sudden or life threatening deterioration of the following system(s) required my full and direct attention, intervention and personal management. The time I documented below is in addition to time spent performing reported procedures but includes the following listed in this critical care notation. Medical Decision Making - Medical Records Medical records reviewed: Yes: I reviewed the patient's medical records. - Jamie Inquiry Pt receiving controlled substance: No Vital Signs: 02/24/21 00:23 02/24/21 01:58 02/24/21 03:00 Temperature 98.9 F Temperature Source Oral Pulse Rate 69 68 Pulse Rate [Right] 80 Respiratory Rate 16 Blood Pressure 112/73 125/73 Blood Pressure [Right Arm] 126/79 Blood Pressure Mean [Right Arm] 94 02 Sat by Pulse Oximetry 97 98 98 02/24/21 03:30 Temperature Temperature Source Pulse Rate 62 Pulse Rate [Right] Respiratory Rate Blood Pressure 112/70 Blood Pressure [Right Arm] Blood Pressure Mean [Right Arm] 02 Sat by Pulse Oximetry 98 - Lab Data Lab results reviewed: Yes: I reviewed the patient's lab results. Lab Results 02/24/21 00:30: Urine Color Yellow, Urine Appearance Sl cloudy, Urine pH 5.5, Ur Specific [place] >= 1.030, Urine Protein Negative, Urine Glucose (UA) Negative, Urine Ketones Negative, Urine Blood 2+, Urine Nitrate Negative, Urine Bilirubin Negative, Urine Urobilinogen 0.2, Ur Leukocyte Esterase Trace, Urine RBC 10-20, Urine WBC 10-20, Ur Squamous Epith Cells 5-10, Urine Bacteria 3+, Urine Mucus 1+ 02/24/21 00:30: Urine HCG, Qual Positive 02/24/21 00:40: Blood Type O Negative, Antibody Screen Negative, Screen Negative 02/24/21 00:40: WBC 12.7 H, RBC 4.24, Hgb 12.5, Hct 37.5, MCV 88.4, MCH 29.5, MCHC 33.4, RDW 13.5, Plt Count 224, MPV 7.7, Neut % (Auto) 66.8, Lymph % (Auto) 26.8, Gem % (Auto) 3.6, Eos % (Auto) 2.5, Baso % (Auto) 0.3, Neut # (Auto) 8.5 H, Lymph # (Auto) 3.4, Gem # (Auto) 0.5, Eos # (Auto) 0.3, Baso # (Auto) 0.0 02/24/21 00:40: Sodium 137, Potassium 3.8, Chloride 104, Carbon Dioxide 25, Anion Gap 11.8, BUN 14, Creatinine 0.70, Estimated Creat Clear 186, Estimated GFR 104, Est GFR ( Amer) 125, Glucose 96, Calcium 8.8, Total Bilirubin 0.3, AST 30, ALT 11 L, Alkaline Phosphatase 71, Total Protein 7.2, Albumin 4.5, Globulin 2.7, Albumin/Globulin Ratio 1.7, HCG, Quant 2945 H Result diagrams: 02/24/21 00:40 02/24/21 00:40 Orders (Tests/Meds): ED MEDICATIONS Generic Name Dose Route Start Last Admin Trade Name Freq PRN Reason Stop Dose Admin Sodium Chloride 1,000 mls @ 999 mls/hr 02/24/21 01:00 02/24/21 00:54 Sod Chlor 0.9% 1000ml Bag IV 02/24/21 02:00 999 mls/hr .Q1H1M APRIL Administration Rho Immune Globulin 0 unit 02/24/21 00:43 02/24/21 03:24 Rho(D) Immune Globulin 1,500 Unit Syringe IM 03/26/21 00:42 1,500 unit NEEDED PRN Administration For Rh Pre/ scrn resu ORDERS Category Date Time Status Urine Culture Stat Micro 02/24/21 00:30 Received US OB transvaginal Stat Ultrasound 02/24/21 01:38 Ordered - US Data US Images: Pelvis ED US Reviewed: Yes: I have viewed radiologist's interpretation Findings Narrative: gest sac only Medical Decision Narrative: will have pt call ob this am and was given rhogam HPI - General Chief complaint: Vaginal Bleeding Stated complaint: Six weeks ;Vaginal Bleeding
[2021-02-24 04:40] VITALS: BP 112/70; PULSE 64; RESP 16; TEMP 37.2; O2SAT 98
== END 2021-02-24 04:41 | disposition home or self-care (01) ==
PROVIDERS: Emergency Provider Emergency Medicine
DX: O20.0 Threatened abortion (principal); Z3A.01 Less than 8 weeks gestation of pregnancy; F17.290 Nicotine dependence, other tobacco product, uncomplicated
CPT/HCPCS: 76817; 76830; 80053; 81001; 81025; 84702; 85025; 85461; 87086; 96365; 96372; 99283; J2790

== ENCOUNTER → 2021-02-26 13:27 | Outpatient (CLI) | payer MEDICAID, SELFPAY ==
[2021-02-26 14:59] LABS: HCG,Quantitative 426 mIU/ml (0-5.42)
== END ==
PROVIDERS: Visit Provider Nurse Practitioner Obstetrics & Gynecology
DX: Z32.00 Encounter for pregnancy test, result unknown (principal)
CPT/HCPCS: 36415; 84702

== ENCOUNTER → 2021-03-03 09:01 | Outpatient (CLI) | payer MEDICAID, SELFPAY ==
--- NOTE | 2021-03-03 09:09 | US_ITS ---
PROCEDURE: US TRANSVAGINAL CLINICAL INDICATION: follow up on Miscarriage COMPARISON: US US OB TRANSVAGINAL from 02/24/2021 FINDINGS: UTERUS: 9.1cm x 6cmx 4cm with a combined endometrial thickness of 4.8mm LEFT OVARY: 2bpp1wvr2.6cm with a volume of 4.9ml. RIGHT OVARY: 3cmx 7ann9wz with a volume of 5.4ml. The uterus demonstrates homogeneous echotexture without evidence of focal lesions. The endometrial echo complex is within normal limits. Bilateral ovaries demonstrate normal echotexture and vascularity. No focal lesions. No evidence of free fluid is noted in the pelvic cul-de-sac. IMPRESSION: Unremarkable pelvic ultrasound Dictated by: Gabi Wu 03/03/2021 11:53 Gabi Wu in [facility] 03/03/2021 11:53
== END ==
PROVIDERS: Visit Provider Nurse Practitioner Obstetrics & Gynecology
DX: N92.6 Irregular menstruation, unspecified (principal); O03.9 Complete or unspecified spontaneous abortion without complication; Z51.89 Encounter for other specified aftercare
CPT/HCPCS: 76830

== ENCOUNTER → 2021-06-02 14:19 | Outpatient (CLI) | payer MEDICAID, SELFPAY ==
[2021-06-02 15:38] LABS: HCG,Quantitative 2408 mIU/ml (0-5.42)
== END ==
PROVIDERS: Visit Provider Nurse Practitioner Obstetrics & Gynecology
DX: N92.6 Irregular menstruation, unspecified (principal)
CPT/HCPCS: 36415; 84702

== ENCOUNTER 2021-06-23 19:32 | Emergency (ER) | payer MEDICAID, SELFPAY ==
[2021-06-23 19:33] VITALS: BP 132/71; PULSE 95; RESP 16; TEMP 37.6; O2SAT 100; BMI 38.8
--- NOTE | 2021-06-23 20:26 | HMH.EDPREG ---
ED Disposition Clinical Impression: COVID-19 Qualifiers: Weeks of gestation: 12 weeks Qualified Code(s): Z3A.12 - 12 weeks gestation of Disposition: Home, Self-Care Condition on Discharge: Good Instructions: DI for COVID-19 (Suspected or Confirmed ) Additional Instructions: fluids and call ob in am Referrals: Provider,MD Estelita [Primary Care Provider] - Bruce Patel MD [Staff Physician] - - Critical Care Critical Care Time: No Attestation: On 06/23/21, the high probability of a clinically significant, sudden or life threatening deterioration of the following system(s) required my full and direct attention, intervention and personal management. The time I documented below is in addition to time spent performing reported procedures but includes the following listed in this critical care notation. Medical Decision Making - Medical Records Medical records reviewed: Yes: I reviewed the patient's medical records. - Jamie Inquiry Pt receiving controlled substance: No Vital Signs: 06/23/21 19:33 Temperature 99.6 F Temperature Source Oral Pulse Rate [Left] 95 H Respiratory Rate 16 Blood Pressure [Right Arm] 132/71 Blood Pressure Mean [Right Arm] 91 02 Sat by Pulse Oximetry 100 Oxygen Delivery Method Room Air - Lab Data Lab results reviewed: Yes: I reviewed the patient's lab results. Lab Results 06/23/21 20:10: WBC 6.6, RBC 4.54, Hgb 13.6, Hct 41.8, MCV 92.1, MCH 30.0, MCHC 32.6, RDW 13.6, Plt Count 208, MPV 8.1, Neut % (Auto) 78.5, Lymph % (Auto) 14.9, [place] % (Auto) 5.5, Eos % (Auto) 0.7, Baso % (Auto) 0.4, Neut # (Auto) 5.2, Lymph # (Auto) 1.0, [place] # (Auto) 0.4, Eos # (Auto) 0.1, Baso # (Auto) 0.0, ESR 30 H 06/23/21 20:10: C-Reactive Protein 8.9 H, Amylase 75, Lipase 42 06/23/21 20:10: Serum HCG, Qual Positive 06/23/21 20:10: Sodium 137, Potassium 3.7, Chloride 103, Carbon Dioxide 25, Anion Gap 12.7, BUN 6 L, Creatinine 0.60, Estimated Creat Clear 208, Estimated GFR 124, Est GFR ( Amer) 150, Glucose 91, Calcium 8.7, Total Bilirubin 0.3, AST 22, ALT 12, Alkaline Phosphatase 64, Total Protein 7.4, Albumin 4.4, Globulin 3.0, Albumin/Globulin Ratio 1.5 06/23/21 20:15: Urine Color Yellow, Urine Appearance Clear, Urine pH 7.5, Ur Specific [place] 1.020, Urine Protein Negative, Urine Glucose (UA) Negative, Urine Ketones Trace, Urine Blood Negative, Urine Nitrate Negative, Urine Bilirubin Negative, Urine Urobilinogen 0.2, Ur Leukocyte Esterase Negative, Urine RBC None, Urine WBC None, Ur Squamous Epith Cells 5-10, Urine Bacteria None 06/23/21 20:37: SARS-CoV-2 (PCR) Detected A, Influenza A Untype (PCR) Not detected, Influenza Type B (PCR) Not detected Result diagrams: 06/23/21 20:10 06/23/21 20:10 Orders (Tests/Meds): ED MEDICATIONS Generic Name Dose Route Start Last Admin Trade Name Freq PRN Reason Stop Dose Admin Sodium Chloride 1,000 mls @ 999 mls/hr 06/23/21 21:15 06/23/21 21:05 Sod Chlor 0.9% 1000ml Bag IV 06/23/21 22:15 999 mls/hr .Q1H1M APRIL Administration Medical Decision Narrative: pt with covid -19 and is 12 weeks with stable vital signs and labs and exam HPI - General Chief complaint: Fever Stated complaint: 12 wks Preg, Fever,dizzy,ALLEN Time Seen by Provider: 06/23/21 20:00 Mode of Arrival: Ambulatory Source of Information: Patient, Medical Record Limitations: No Limitations Description of Symptoms (Recalled from ER Triage Doc. by RN): pt states to have has a fever all day also feeling light headed with a headache - History of Present Illness HPI Narrative: fever and uri sx with no rash - pt is MD Complaint: other (no abd pain) Onset (ago): hour(s) Severity: moderate Associated symptoms: denies other symptoms : Yes Date of Last Menstrual Period: march 18 2021 care: followed by OB - Related Data Previous Rx's Medication Instructions Recorded prenat.vits,brandi,[id number] 1 tab
[2021-06-23 20:30] LABS: Microscopic, Urine URINE MICROSCOPIC (MICROSCOPIC)
[2021-06-23 20:36] LABS: Basophils % 0.4 % (0.1-2.0); Eosinophils # 0.1 K/mm3 (0.0-0.4); Eosinophils % 0.7 % (0.1-12.0); Hematocrit 41.8 % (37.0-47.0); Hemoglobin 13.6 g/dL (12.2-16.2); Lymphocytes % 14.9 % (10-50); Mean Corpuscular HGB Conc 32.6 g/dL (31.8-35.4); Mean Corpuscular Volume 92.1 fl (81-99); Mean Platelet Volume 8.1 fl (7.4-10.4); Monocytes # 0.4 K/mm3 (0.1-1.0); Monocytes % 5.5 % (1.7-9.3); Neutrophils # 5.2 K/mm3 (1.8-7.8); Neutrophils % 78.5 % (37.0-80.0); Platelet Count 208 K/mm3 (142-424); Red Blood Count 4.54 M/mm3 (4.20-5.40); Red Cell Distribution Width 13.6 % (11.5-17.5); White Blood Count 6.6 K/mm3 (4.8-10.8)
[2021-06-23 20:40] LABS: Appearance,Urine CLEAR (Clear); Bilirubin,Urine Negative (Negative); Blood, Urine Negative (Negative); Color,Urine YELLOW (Yellow); Glucose,Urine (UA) Negative (Negative); Ketones,Urine TRACE (Negative); Leukocyte Esterase,Urine Negative (Negative); Nitrate,Urine Negative (Negative); PH,Urine 7.5 (5.0-8.5); Protein,Urine Negative (Negative); Urobilinogen,Urine 0.2 EU/dl (0.2)
[2021-06-23 20:44] LABS: Influenza A, PCR Not Detected (NotDetected); Influenza B, PCR Not Detected (NotDetected)
[2021-06-23 20:52] LABS: HCG Qualitative, Serum Positive (Negative)
[2021-06-23 21:05] LABS: Coronavirus 19, PCR Detected (NotDetected)
[2021-06-23 21:19] LABS: Alanine Aminotransferase 12 U/L (12-78); Albumin Level 4.4 g/dl (3.5-5.0); Albumin/Globulin Ratio 1.5 (1.1-1.8); Alkaline Phosphatase 64 U/L (38-126); Anion Gap 12.7 mEq/L (5-15); Aspartate Amino Transferase 22 U/L (14-36); Bilirubin,Total 0.3 mg/dl (0.2-1.3); Blood Urea Nitrogen 6 mg/dl (7-17); Calcium 8.7 mg/dl (8.4-10.2); Carbon Dioxide 25 mmol/L (22.0-30.0); Chloride 103 mmol/L (98-107); Creatinine Clearance Estimated 208 mL/min (50-200); Estimated Glomerular Filt Rate 124 ml/min (>60); GFR (African American) 150 ML/MIN (>60); Glucose 91 mg/dl (74-100); Potassium 3.7 mmoL/L (3.5-5.1); Sodium 137 mmol/L (136-145); Total Protein,Serum 7.4 g/dl (6.3-8.2)
[2021-06-23 21:20] LABS: Amylase 75 U/L (30-110); Lipase 42 U/L (23-300)
[2021-06-23 21:26] LABS: C-Reactive Protein 8.9 mg/L (0-4); Erythrocyte Sedimentation Rate 30 mm/hr (0-20)
[2021-06-23 21:43] VITALS: BP 125/66; PULSE 87; RESP 20; TEMP 36.9; O2SAT 97
[2021-06-23 21:45] VITALS: BP 109/66; PULSE 88; RESP 14; TEMP 37.6; O2SAT 97
== END 2021-06-23 21:47 | disposition home or self-care (01) ==
PROVIDERS: Emergency Provider Emergency Medicine
DX: U07.1 COVID-19 (principal); Z3A.12 12 weeks gestation of pregnancy; F41.8 Other specified anxiety disorders; F17.210 Nicotine dependence, cigarettes, uncomplicated
CPT/HCPCS: 80053; 81001; 82150; 83690; 84703; 85025; 85651; 86140; 96365; 99283; C9803; U0003; U0005

== ENCOUNTER 2021-06-26 09:51 | Outpatient (CLI) | payer MEDICAID, SELFPAY ==
[2021-06-26] VITALS (7 sets, daily range): BP systolic 104–123; BP diastolic 63–78; PULSE 78–88; RESP 16; TEMP 36.8–36.9; O2SAT 100
== END 2021-06-26 12:22 | disposition home or self-care (01) ==
PROVIDERS: Visit Provider Emergency Medicine
DX: U07.1 COVID-19 (principal); Z23 Encounter for immunization
CPT/HCPCS: 96365

== ENCOUNTER → 2021-07-07 12:52 | Outpatient (CLI) | payer MEDICAID, SELFPAY ==
--- NOTE | 2021-07-07 12:52 | US_ITS ---
PROCEDURE: US OB <= 14 WEEKS FETUS CLINICAL INDICATION: US OB TV before 14 wks -DATES COMPARISON: US US OB TRANSVAGINAL from 02/24/2021 FINDINGS: An intrauterine gestational sac is present with a pole with a crown-rump length of 3.13cm correlating to gestational age of 10weeks 1day. heart tones are present with an FHR of 170bpm. Yolk sac is noted. Unremarkable adnexa IMPRESSION: Live IUP at 10 weeks 1 day. Estimated due date by Ultrasound is 02/01/2022 Dictated by: Vini Morales MD 07/07/2021 18:19 Vini Morales MD in [facility] 07/07/2021 18:19
== END ==
PROVIDERS: Visit Provider Nurse Practitioner Obstetrics & Gynecology
DX: O26.841 Uterine size-date discrepancy, first trimester (principal)
CPT/HCPCS: 76801

== ENCOUNTER → 2021-07-17 10:06 | Outpatient (CLI) | payer MEDICAID, SELFPAY ==
[2021-07-17 10:37] LABS: Basophils % 0.3 % (0.1-2.0); Eosinophils # 0.2 K/mm3 (0.0-0.4); Eosinophils % 1.8 % (0.1-12.0); Hematocrit 36.1 % (37.0-47.0); Hemoglobin 12.5 g/dL (12.2-16.2); Lymphocytes # 1.8 K/mm3 (0.7-4.5); Lymphocytes % 16.4 % (10-50); Mean Corpuscular HGB Conc 34.6 g/dL (31.8-35.4); Mean Corpuscular Hemoglobin 30.6 pg (27.0-31.2); Mean Corpuscular Volume 88.3 fl (81-99); Mean Platelet Volume 7.9 fl (7.4-10.4); Monocytes # 0.5 K/mm3 (0.1-1.0); Monocytes % 4.5 % (1.7-9.3); Neutrophils # 8.5 K/mm3 (1.8-7.8); Neutrophils % 76.9 % (37.0-80.0); Platelet Count 216 K/mm3 (142-424); Red Blood Count 4.09 M/mm3 (4.20-5.40); Red Cell Distribution Width 13.9 % (11.5-17.5)
[2021-07-18 08:38] LABS: HSV 2 IgG, Type Spec <0.91 index (0.00-0.90); Rubella Antibodies, IgG 1.25 index (Immune >0.99)
[2021-07-18 10:12] LABS: Rapid Plasma Reagin Ab Titer Non Reactive (NonRea<1:1)
[2021-07-18 11:28] LABS: HIV Screen 4th Generation wRfx Non Reactive (Non Reactive); Hepatitis B Surface Antigen Negative (Negative); Hepatitis C Antibody <0.1 s/co ratio (0.0-0.9)
== END ==
PROVIDERS: Visit Provider Nurse Practitioner Obstetrics & Gynecology
DX: Z34.90 Encounter for supervision of normal pregnancy, unspecified, unspecified trimester (principal)
CPT/HCPCS: 36415; 85025; 86592; 86695; 86703; 86762; 86790; 86850; 87340; 87380; G0432

== ENCOUNTER 2021-09-18 10:43 | Outpatient (CLI) | payer MEDICAID, SELFPAY ==
[2021-09-18 10:54] VITALS: BMI 38.8
[2021-09-18 11:04] VITALS: BP 124/70; PULSE 92; RESP 17; TEMP 36.8; O2SAT 99; BMI 38.8
[2021-09-18 11:07] LABS: Microscopic, Urine URINE MICROSCOPIC (MICROSCOPIC)
[2021-09-18 11:10] LABS: Appearance,Urine CLEAR (Clear); Bilirubin,Urine Negative (Negative); Blood, Urine Negative (Negative); Color,Urine YELLOW (Yellow); Glucose,Urine (UA) Negative (Negative); Ketones,Urine Negative (Negative); Leukocyte Esterase,Urine Negative (Negative); Nitrate,Urine Negative (Negative); Protein,Urine Negative (Negative); Urobilinogen,Urine 0.2 EU/dl (0.2)
[2021-09-18 11:21] LABS: Barbiturates Screen,Urine Negative ng/ml (<200)
[2021-09-18 11:22] LABS: Benzodiazepines Screen,Urine Negative ng/ml (<200)
[2021-09-18 11:23] LABS: Amphetamine/Metha Screen,Urine Negative ng/ml (<1000); Methadone Screen,Urine Negative ng/ml (<300)
[2021-09-18 11:24] LABS: Cannabinoid Screen,Urine Negative ng/ml (<50)
[2021-09-18 11:25] LABS: Cocaine Screen,Urine Negative ng/ml (<300); Opiate Screen,Urine Negative ng/ml (<300)
[2021-09-18 11:26] LABS: Phencyclidine Screen,Urine Negative ng/ml (<25)
[2021-09-18 11:39] LABS: WBC,Urine Occasional #/hpf (0-3)
[2021-09-18 11:40] LABS: Bacteria,Urine Trace /lpf
== END 2021-09-18 11:35 | disposition home or self-care (01) ==
LOC: OBOUT 10:45 → OB 10:47
PROVIDERS: Visit Provider Nurse Practitioner Obstetrics & Gynecology
DX: O26.892 Other specified pregnancy related conditions, second trimester (principal); Z3A.20 20 weeks gestation of pregnancy; R20.0 Anesthesia of skin; M79.605 Pain in left leg; M79.604 Pain in right leg
CPT/HCPCS: 80305; 81001; G0463

== ENCOUNTER → 2021-09-19 12:35 | Outpatient (CLI) | payer MEDICAID, SELFPAY ==
--- NOTE | 2021-09-19 12:35 | US_ITS ---
FINAL REPORT CLINICAL HISTORY: 20 weeks gestation FINDINGS: There is a single live intrauterine gestation. Presentation is breech. The cervix is closed and measures 4.6 cm. Placenta is posterior and grade 1. Cardiac activity is confirmed at 143 bpm. The fetus is active. Three-vessel cord with satisfactory umbilical cord insertion. Four-chamber heart is noted. brain and ventricles are unremarkable. Chest and diaphragm are unremarkable. ABDOMEN: Both kidneys are unremarkable. Stomach is unremarkable. SPINE: No anomalies identified. Both arms and legs noted. AMNIOTIC FLUID: Appropriate amount. MEASUREMENTS: ULTRASOUND AGE: 20 weeks 6 days. GESTATION AGE: 20 weeks 5 days. ESTIMATED WEIGHT: 411 g GROWTH PERCENTILE: 75% BPD: 4.8 cm consistent with 20 weeks 3 days. OFD: 6 cm consistent with 20 weeks 3 days. HC: 17 cm consistent with 19 weeks 5 days. AC: 16.8 cm consistent with 21 weeks 6 days. FL: 3.5 cm consistent with 21 weeks 2 days. CEREBELLUM: 1.9 cm consistent with 19 weeks 2 days. HUMERUS: 3.3 cm consistent with 21 weeks 2 days. HC/AC: 1.01 CI: 79% FL/BPD: 74% FL/AC: 21% IMPRESSION: Single living IUP with an ultrasound age of 20 weeks 6 days. Reviewed, Interpreted and Dictated by Edvin Gomez III, MD Transcribed by Jorden Canales Authenticated by Edvin Gomez III, MD on 09/19/2021 02:36:54 PM [facility]
== END ==
PROVIDERS: PCP Nurse Practitioner Obstetrics & Gynecology; Visit Provider Nurse Practitioner Obstetrics & Gynecology
DX: Z36.0 Encounter for antenatal screening for chromosomal anomalies (principal); Z3A.20 20 weeks gestation of pregnancy
CPT/HCPCS: 76811

== ENCOUNTER 2021-11-03 09:19 | Outpatient (CLI) | payer MEDICAID, SELFPAY ==
[2021-11-03 10:02] LABS: Glucose,Fasting 81 mg/dl (74-100)
[2021-11-03 11:05] VITALS: BP 118/68; PULSE 79; RESP 18; O2SAT 99
[2021-11-03 11:43] LABS: Glucose 1 Hour 128 mg/dL (74-100)
== END 2021-11-03 11:05 | disposition home or self-care (01) ==
LOC: LAB 09:20 → INF 11:05
PROVIDERS: PCP Nurse Practitioner Obstetrics & Gynecology; Visit Provider Nurse Practitioner Obstetrics & Gynecology
DX: Z34.90 Encounter for supervision of normal pregnancy, unspecified, unspecified trimester (principal); Z3A.25 25 weeks gestation of pregnancy
CPT/HCPCS: 36415; 82951; 96372; J2790

== ENCOUNTER → 2021-12-29 12:29 | Outpatient (CLI) | payer MEDICAID, SELFPAY ==
--- NOTE | 2021-12-29 12:38 | US_ITS ---
FINAL REPORT CLINICAL HISTORY: LGA FINDINGS: There is a single live intrauterine gestation. Presentation is cephalic. Placenta is post fundal grade 1. Cardiac activity is confirmed at 138 bpm. Fetus is active. CORTES: 9.10 cm MEASUREMENTS: ULTRASOUND AGE: 36 weeks 0 days. GESTATION AGE: 35 weeks 1 days. ESTIMATED WEIGHT: 6 lb 1 oz GROWTH PERCENTILE: 65% BPD: 8.94 cm consistent with 36 weeks 2 days. OFD: 11.18 cm consistent with 36 weeks 6 days. HC: 31.80 cm consistent with 35 weeks 6 days. AC: 31.65 cm consistent with 35 weeks 5 days. FL: 6.98 cm consistent with 35 weeks 6 days. HC/AC: 1.00 CI: 80% FL/BPD: 78% FL/AC: 22% BREATHIN MOVEMENT: 2 TONE: 2 FLUID VOLUME: 2 BPP SCORE: 8/8 IMPRESSION: Single living IUP with an ultrasound age of 36 weeks 0 days. BPP SCORE: 8/8 Reviewed, Interpreted and Dictated by Edvin Gomez III, MD Transcribed by Cecy Francois Authenticated by Edvin Gomez III, MD on 12/29/2021 04:24:16 PM [facility]
== END ==
PROVIDERS: PCP Nurse Practitioner Obstetrics & Gynecology; Visit Provider Nurse Practitioner Obstetrics & Gynecology
DX: O36.60X0 Maternal care for excessive fetal growth, unspecified trimester, not applicable or unspecified (principal)
CPT/HCPCS: 76816; 76819

== ENCOUNTER → 2022-01-05 12:16 | Outpatient (CLI) | payer MEDICAID, SELFPAY | PROVIDERS: Visit Provider Nurse Practitioner Obstetrics & Gynecology | DX: Z34.90 Encounter for supervision of normal pregnancy, unspecified, unspecified trimester (principal); Z3A.36 36 weeks gestation of pregnancy | CPT/HCPCS: 86403 ==

== ENCOUNTER 2022-01-13 02:50 | Observation (INO) | payer MEDICAID, SELFPAY ==
[2022-01-13 00:59] VITALS: BMI 42.5
[2022-01-13 01:53] LABS: Microscopic, Urine URINE MICROSCOPIC (MICROSCOPIC)
[2022-01-13 01:56] LABS: Appearance,Urine CLEAR (Clear); Bilirubin,Urine Negative (Negative); Blood, Urine Negative (Negative); Color,Urine YELLOW (Yellow); Glucose,Urine (UA) Negative (Negative); Ketones,Urine Negative (Negative); Leukocyte Esterase,Urine Negative (Negative); Nitrate,Urine Negative (Negative); Protein,Urine Negative (Negative); Specific Gravity, Urine >= 1.030 (1.005-1.030)
[2022-01-13 02:08] LABS: Amphetamine/Metha Screen,Urine Negative ng/ml (<1000); Benzodiazepines Screen,Urine Negative ng/ml (<200)
[2022-01-13 02:09] LABS: Barbiturates Screen,Urine Negative ng/ml (<200)
[2022-01-13 02:10] LABS: Cannabinoid Screen,Urine Negative ng/ml (<50); Cocaine Screen,Urine Negative ng/ml (<300)
[2022-01-13 02:11] LABS: Methadone Screen,Urine Negative ng/ml (<300); Opiate Screen,Urine Negative ng/ml (<300)
[2022-01-13 02:12] LABS: Phencyclidine Screen,Urine Negative ng/ml (<25)
[2022-01-13 02:17] LABS: Bacteria,Urine 1+ /lpf; Mucus,Urine 1+ /lpf
[2022-01-13 04:08] VITALS: BP 117/64; PULSE 89; RESP 18; TEMP 37.1; O2SAT 100; BMI 42.5
[2022-01-13 04:49] LABS: Coronavirus 19, PCR Not Detected (NotDetected); Influenza A, PCR Not Detected (NotDetected); Influenza B, PCR Not Detected (NotDetected)
[2022-01-13 05:18] LABS: Basophils # 0.1 K/mm3 (0-0.2); Basophils % 0.7 % (0.1-2.0); Eosinophils # 0.1 K/mm3 (0.0-0.4); Eosinophils % 0.5 % (0.1-12.0); Hematocrit 28.3 % (37.0-47.0); Hemoglobin 9.2 g/dL (12.2-16.2); Lymphocytes % 18.4 % (10-50); Mean Corpuscular HGB Conc 32.6 g/dL (31.8-35.4); Mean Corpuscular Hemoglobin 28.8 pg (27.0-31.2); Mean Corpuscular Volume 88.5 fl (81-99); Mean Platelet Volume 9.4 fl (7.4-10.4); Monocytes # 0.4 K/mm3 (0.1-1.0); Monocytes % 4.1 % (1.7-9.3); Neutrophils # 8.2 K/mm3 (1.8-7.8); Neutrophils % 76.3 % (37.0-80.0); Platelet Count 175 K/mm3 (142-424); Red Cell Distribution Width 15.6 % (11.5-17.5); White Blood Count 10.8 K/mm3 (4.8-10.8)
--- NOTE | 2022-01-13 08:42 | HMH.HPDC ---
General - General Admission date:: 01/13/22 Discharge date: 01/13/22 *Admission Date: 01/13/22 *Chief complaint: False labor *History of present illness: She is a 26-year-old 3 para 1 aborta 1 who is 37+ weeks gestational age. She came in with irregular contractions. She was found to be 2 cm dilated 50% Station -3. [facility] History I have reviewed the patient's past medical history: Yes Medical History: Reports:: Anxiety, Depression, MRSA Denies:: Diabetes Mellitus Type 2, Hypertension *Have you ever received a pneumonia vaccine?: No *Have you received a flu vaccine this season?: No Other Surgeries: Yes: No Previous Surgery. No: Amputation: No Fractures: No - *Social History Smoking Status: Current every day smoker Tobacco Type: e-cigarettes # Packs/Day (cigarettes): 0 Alcohol Intake: never Substance Use Type: denies use *Occupational Status:: employed *Travel in the last 8 weeks: None - Psychiatric History Pschychiatric History:: Reports:: Anxiety, Depression Family Hx:: No significant family history Para: 1 Review of Systems - Review of Systems Review of systems:: pertinent systems reviewed and negative unless documented below Exam Vital signs and Labs for Last 24 Hours: Temp Pulse Resp BP Pulse Ox 98.8 F 89 18 117/64 100 01/13/22 04:08 01/13/22 04:08 01/13/22 04:08 01/13/22 04:08 01/13/22 04:08 Laboratory Results - last 24 hr 01/13/22 01:02: Urine Color Yellow, Urine Appearance Clear, Urine pH 6.0, Ur Specific [place] >= 1.030, Urine Protein Negative, Urine Glucose (UA) Negative, Urine Ketones Negative, Urine Blood Negative, Urine Nitrate Negative, Urine Bilirubin Negative, Urine Urobilinogen 1.0, Ur Leukocyte Esterase Negative, Urine WBC 3-5, Ur Squamous Epith Cells 3-5, Urine Bacteria 1+, Urine Mucus 1+ 01/13/22 01:02: Urine Opiates Screen Negative, Urine Methadone Screen Negative, Ur Barbituates Screen Negative, Ur Phencyclidine Scrn Negative, Ur Amphetamines Screen Negative, U Benzodiazepines Scrn Negative, Urine Cocaine Screen Negative, U Marijuana (THC) Screen Negative 01/13/22 04:30: WBC 10.8, RBC 3.20 L, Hgb 9.2 L, Hct 28.3 L, MCV 88.5, MCH 28.8, MCHC 32.6, RDW 15.6, Plt Count 175, MPV 9.4, Neut % (Auto) 76.3, Lymph % (Auto) 18.4, [place] % (Auto) 4.1, Eos % (Auto) 0.5, Baso % (Auto) 0.7, Neut # (Auto) 8.2 H, Lymph # (Auto) 2.0, [place] # (Auto) 0.4, Eos # (Auto) 0.1, Baso # (Auto) 0.1 01/13/22 04:30: SARS-CoV-2 (PCR) Not detected, Influenza A Untype (PCR) Not detected, Influenza Type B (PCR) Not detected 01/13/22 04:30: Blood Type O Negative, Antibody Screen Negative I & O for Last 24 hours: Intake & Output 01/10/22 01/11/22 01/12/22 01/13/22 11:59 11:59 11:59 11:59 Weight 218 lb - Constitutional no acute distress - *Routine HEENT Exam Head: Present: normocephalic Eye: Present: EOMI, PERRL ENT: Present: mucous membranes moist - *Routine Neck Exam Present: supple, full ROM - *Routine Respiratory Exam Absent: accessory muscle use (good air entry bilaterally), wheezes, crackles - *Routine Cardiovascular Exam Present: RRR. Absent: murmur - *Routine Abdominal Exam Present: soft, normoactive bowel sounds. Absent: tenderness, rebound, guarding, mass - *Routine Rectal Exam Rectal:: deferred - *Routine Genitalia Exam Genitalia:: normal female - *Routine Extremities Exam Present: full ROM. Absent: cyanosis, edema, calf tenderness - *Routine Skin Exam Present: intact (good color) - *Routine Neurological Exam Present: alert, oriented X3 - Routine Psychiatric Exam Present: normal affect - Detailed Rectal Exam Patient deferred: visual exam, digital exam - Detailed Exam Patient deferred: external exam, groin exam, perineal exam Hospital Course Hospital Course: She was observed overnight and was having a few irregular contractions about 7 minutes apart. She did not feel them. Her cervix has not changed. As result of that we are s
== END 2022-01-13 09:17 | disposition home or self-care (01) ==
LOC: OBOUT 02:51 → OB 08:44
PROVIDERS: Admitting Provider Nurse Practitioner Obstetrics & Gynecology; Visit Provider Nurse Practitioner Obstetrics & Gynecology
DX: O47.1 False labor at or after 37 completed weeks of gestation (principal)
CPT/HCPCS: 36415; 59025; 80305; 81001; 85025; 86850; 96372; C9803; G0378; J0595; U0003; U0005

== ENCOUNTER → 2022-01-24 10:00 | Outpatient (CLI) | payer MEDICAID, SELFPAY | PROVIDERS: Visit Provider Nurse Practitioner Obstetrics & Gynecology | DX: Z01.812 Encounter for preprocedural laboratory examination (principal); Z20.822 Contact with and (suspected) exposure to COVID-19; Z34.90 Encounter for supervision of normal pregnancy, unspecified, unspecified trimester | CPT/HCPCS: C9803; U0003; U0005 ==

== ENCOUNTER 2022-01-26 04:58 | Inpatient (IN) | payer MEDICAID, SELFPAY ==
[2022-01-26 05:09] VITALS: BMI 42.5
[2022-01-26 05:24] VITALS: BP 113/66; PULSE 102; RESP 18; TEMP 37.2; O2SAT 100; BMI 41.8
[2022-01-26 06:07] LABS: Influenza A, PCR Not Detected (NotDetected); Influenza B, PCR Not Detected (NotDetected); Microscopic, Urine URINE MICROSCOPIC (MICROSCOPIC)
[2022-01-26 06:08] LABS: Appearance,Urine CLEAR (Clear); Bilirubin,Urine Negative (Negative); Blood, Urine Negative (Negative); Color,Urine YELLOW (Yellow); Glucose,Urine (UA) Negative (Negative); Ketones,Urine Negative (Negative); Leukocyte Esterase,Urine 1+ (Negative); Nitrate,Urine Negative (Negative); Protein,Urine Negative (Negative); Urobilinogen,Urine 0.2 EU/dl (0.2)
[2022-01-26 06:18] LABS: Amphetamine/Metha Screen,Urine Negative ng/ml (<1000)
[2022-01-26 06:19] LABS: Barbiturates Screen,Urine Negative ng/ml (<200); Benzodiazepines Screen,Urine Negative ng/ml (<200)
[2022-01-26 06:20] LABS: Cannabinoid Screen,Urine Negative ng/ml (<50)
[2022-01-26 06:21] LABS: Cocaine Screen,Urine Negative ng/ml (<300); Methadone Screen,Urine Negative ng/ml (<300)
[2022-01-26 06:22] LABS: Opiate Screen,Urine Negative ng/ml (<300)
[2022-01-26 06:23] LABS: Bacteria,Urine 2+ /lpf; Phencyclidine Screen,Urine Negative ng/ml (<25)
[2022-01-26 06:24] LABS: RBC,Urine Occasional #/hpf (0-3)
[2022-01-26 06:42] LABS: Basophils % 0.2 % (0.1-2.0); Eosinophils # 0.1 K/mm3 (0.0-0.4); Hemoglobin 10.6 g/dL (12.2-16.2); Lymphocytes # 2.2 K/mm3 (0.7-4.5); Mean Corpuscular HGB Conc 33.2 g/dL (31.8-35.4); Mean Corpuscular Hemoglobin 28.6 pg (27.0-31.2); Mean Corpuscular Volume 86.4 fl (81-99); Mean Platelet Volume 8.7 fl (7.4-10.4); Monocytes # 0.6 K/mm3 (0.1-1.0); Monocytes % 5.3 % (1.7-9.3); Neutrophils # 8.5 K/mm3 (1.8-7.8); Neutrophils % 74.5 % (37.0-80.0); Platelet Count 196 K/mm3 (142-424); Red Blood Count 3.71 M/mm3 (4.20-5.40); Red Cell Distribution Width 17.2 % (11.5-17.5); White Blood Count 11.4 K/mm3 (4.8-10.8)
[2022-01-26 06:43] LABS: Coronavirus 19, PCR Detected (NotDetected)
[2022-01-26 07:50] LABS: Adenovirus,PCR Not Detected (NotDetected); Bordetella Pertussis Not Detected (NotDetected); Chlamydophila Pneumoniae, PCR Not Detected (NotDetected); Coronavirus 19, PCR Not Detected (NotDetected); Coronavirus 229E Not Detected (NotDetected); Coronavirus NL63 Not Detected (NotDetected); Coronavirus OC43 Not Detected (NotDetected); Coronovirus HKU1,PCR Not Detected (NotDetected); Human Metapneumovirus Not Detected (NotDetected); Influenza A, PCR Not Detected (NotDetected); Influenza AH1, 2009 Not Detected (NotDetected); Influenza AH1, PCR Not Detected (NotDetected); Influenza AH3,PCR Not Detected (NotDetected); Influenza B, PCR Not Detected (NotDetected); Mycoplasma Pneumoniae, PCR Not Detected (NotDetected); Parainfluenza 1, PCR Not Detected (NotDetected); Parainfluenza 2, PCR Not Detected (NotDetected); Parainfluenza 3, PCR Not Detected (NotDetected); Parainfluenza 4, PCR Not Detected (NotDetected); Respiratory Syncytial Virus Not Detected (NotDetected); Rhinovirus/Enterovirus Not Detected (NotDetected)
[2022-01-26 08:50] VITALS: BP 117/66; PULSE 78; RESP 18; TEMP 36.9; O2SAT 99
--- NOTE | 2022-01-26 09:23 | HMH.LABNOT ---
Labor Note - Subjective: Date: 01/26/22 Time: 09:23 regular contraction - Objective: NST:: Reactive Contractions:: every 2-3 minutes Cervical Dilation:: 3 Effacement:: 75% Station: -1 Membranes: artificially ruptured Comment:: I ruptured her membranes and there was clear fluid. - Fetus: Monitoring?: Yes monitoring type:: External - Assessment: Labor progressing?: Yes Cephalopelvic disproportion?: No Patient Problems: All Active Problems COVID-19 (Acute) False labor after 37 completed weeks of gestation (Acute) (Acute) Abnormal menstrual periods (Acute) - Plan: Anesthesia for epidural?: Yes Continue to labor down?: Yes Plan for ?: No Continue to monitor?: Yes Start pushing?: No
--- NOTE | 2022-01-26 11:23 | P.PN_ITS ---
[facility] Anesthesia Checklist - Patient Identification Patient Identification: Arm Band - Structural Data Admitted From: Home Planned Operative Procedure/s: Labor Epidural Consent for Planned Operative Procedure(s) Verified: Yes Verified Documents: Surgical Consent, History and Physical - NPO Status Verified Time NPO: 00:00 - Additional verifications Anesthesia Reactions: No - Airway Assessment C-Spine Mobility Assessed: Yes TMJ Mobility Assessed: Yes Dentition: Good Dentition - Neurological Assessment Level of Consciousness: Awake, Alert - Anesthesia Plan Anesthesia Risk discussed: Yes Anesthesia Plan: Verified ASA Class: II Anesthesia Type: Epidural [facility] History I have reviewed the patient's past medical history: Yes Medical History: 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 No: Amputation: No Fractures: No - *Social History Smoking Status: Current every day smoker Tobacco Type: e-cigarettes # Packs/Day (cigarettes): 0 Alcohol Intake: never Substance Use Type: denies use *Occupational Status:: other *Travel in the last 8 weeks: None - Psychiatric History Pschychiatric History:: Reports:: Anxiety, Depression Family Hx:: No significant family history Para: 1
--- NOTE | 2022-01-26 11:39 | HMH.LABNOT ---
Labor Note - Subjective: Date: 01/26/22 Time: 11:39 regular contraction - Objective: NST:: Reactive Contractions:: every 2-3 minutes Cervical Dilation:: 5-6 Effacement:: 90% Station: 0 Membranes: artificially ruptured - Fetus: Monitoring?: Yes monitoring type:: External - Assessment: Labor progressing?: Yes Cephalopelvic disproportion?: No Patient Problems: All Active Problems COVID-19 (Acute) False labor after 37 completed weeks of gestation (Acute) (Acute) Abnormal menstrual periods (Acute) - Plan: Anesthesia for epidural?: Yes Continue to labor down?: Yes Plan for ?: No Continue to monitor?: Yes Start pushing?: No
[2022-01-26 12:02] VITALS: BP 115/62; PULSE 88; RESP 18; TEMP 36.3; O2SAT 98
--- NOTE | 2022-01-26 13:59 | HMH.LABNOT ---
Labor Note - Subjective: Date: 01/26/22 Time: 13:59 regular contraction - Objective: Contractions:: every 2-3 minutes Cervical Dilation:: 7 Effacement:: 90% Station: 0 Membranes: artificially ruptured - Fetus: Monitoring?: Yes monitoring type:: Internal Comment:: I inserted a clip and an IUPC. - Assessment: Labor progressing?: Yes Cephalopelvic disproportion?: No Patient Problems: All Active Problems COVID-19 (Acute) False labor after 37 completed weeks of gestation (Acute) (Acute) Abnormal menstrual periods (Acute) - Plan: Anesthesia for epidural?: Yes Continue to labor down?: Yes Plan for ?: No Continue to monitor?: Yes Start pushing?: No
--- NOTE | 2022-01-26 15:59 | HMH.DN ---
- Delivery Note Delivery Date:: 01/26/22 Delivery Time:: 14:36 Anesthesia Type: Epidural Was labor medically induced?: Yes Induction method: per pitocin protocol Gestational age (weeks): 39 delivered prior to 39 weeks?: No Gender: Male at 1 minute: 9 at 5 minutes: 9 LAC or MLE?: LAC Delivery Procedure:: She is a 26-year-old 3 para 1 aborta 1 at 39 weeks gestational age who was extremely uncomfortable. As result of that she was brought in for induction of labor at term. She was started on IV oxytocin and had her membranes ruptured. Under labor epidural she progressed to full dilation and delivered spontaneously a liveborn male child at 2:36 PM in the afternoon of January 26, 2022. On deliver the head the anterior shoulder easily delivered followed by the rest the infant's body atraumatically. The baby was vigorous. The oropharynx and nasopharynx were bulb suction. We allowed the cord to continue to pulsate for approximately 1 minute. The cord was then doubly clamped and cut and the infant was placed on the mother's abdomen for further care. The nurse assigned Apgars of 9 at 1 minute and 9 at 5 minutes. We then obtained cord blood. She received IV oxytocin and then using gentle traction on the cord and countertraction the fundus I was able to easily deliver the placenta intact at 2:39 PM. Had normal three-vessel cord. There was a small first-degree perineal laceration and using interrupted 3-0 Vicryl Rapide suture I was able to easily reapproximate the tissue in the vagina and perineum. She has O Rh- blood, she is rubella immune and was group B streptococcus negative. She plans to bottlefeed. Estimated blood loss was approximately 200 cc. Laceration:: vaginal Placental Delivery Description: Spontaneous
--- NOTE | 2022-01-26 16:04 | HMH.OBAPHP ---
OB - H&P: HPI Antepartum - History of Present Illness Chief complaint: Term History of present illness: She is a 26-year-old 3 para 1 aborta 1 at 39+ weeks gestational age. She is having pressure and was feeling uncomfortable so we elected to induce her labor at term. 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 No: Amputation: No Fractures: No - *Social History Smoking Status: Current every day smoker Tobacco Type: e-cigarettes # Packs/Day (cigarettes): 0 Alcohol Intake: never Substance Use Type: denies use *Occupational Status:: other *Travel in the last 8 weeks: None - Psychiatric History Pschychiatric History:: Reports:: Anxiety, Depression Family Hx:: No significant family history Para: 1 Review of Systems - Review of Systems Review of systems:: pertinent systems reviewed and negative unless documented below Meds Home Medications Medication Instructions Recorded Confirmed Type prenat.vits,brandi,uos-mhwu-tdilh 1 tab PO DAILY #30 tab 12/05/20 01/26/22 Rx Ferrous Sulfate 325 mg PO DAILY 01/13/22 01/26/22 History Allergies Allergy/AdvReac Type Severity Reaction Status Date / Time No Known Allergies Allergy Verified 01/22/22 10:29 OB - H&P: Exam - Physical Exam Vital signs: Temp Pulse Resp BP Pulse Ox 97.4 F L 88 18 115/62 98 01/26/22 12:02 01/26/22 12:02 01/26/22 12:02 01/26/22 12:02 01/26/22 12:02 - Constitutional no acute distress - Routine HEENT Exam Head: Present: normocephalic Eye: Present: EOMI, PERRL ENT: Present: mucous membranes moist - Routine Neck Exam Present: supple, full ROM - Routine Respiratory Exam Absent: accessory muscle use (good air entry bilaterally), respiratory distress, wheezes, crackles - Routine Cardiovascular Exam Present: RRR. Absent: murmur - Routine Abdominal Exam Present: soft, normoactive bowel sounds. Absent: tenderness, distended, guarding - Routine Rectal Exam Patient deferred: visual exam, digital exam - Routine Exam Patient deferred: external exam, groin exam, perineal exam - Routine Extremities Exam Present: full ROM. Absent: cyanosis, edema - Routine Skin Exam Present: intact. Absent: cyanosis - Routine Neurological Exam Present: alert, oriented X3 - Routine Psychiatric Exam Present: normal affect OB - Results - Labs Labs: Short CBC 01/26/22 Range/Units 05:54 WBC 11.4 H (4.8-10.8) K/mm3 Hgb 10.6 L (12.2-16.2) g/dL Hct 32.0 L (37.0-47.0) % Plt Count 196 (142-424) K/mm3 Urine 01/26/22 Range/Units 05:50 Urine Color Yellow (Yellow) Urine Appearance Clear (Clear) Urine pH 6.0 (5.0-8.5) Ur Specific [place] 1.020 (1.005-1.030) Urine Protein Negative (Negative) Urine Glucose (UA) Negative (Negative) OB - A/P Antepartum (1) Normal delivery at term Status: Acute - Additional Plan Planning to breastfeed?: No Plan: induction Additional Information:: She is admitted for induction of labor at term.
[2022-01-26 20:00] VITALS: BP 133/69; PULSE 106; RESP 18; TEMP 36.7; O2SAT 99
[2022-01-27 03:50] VITALS: BP 105/63; PULSE 80; RESP 17; TEMP 36.9; O2SAT 99
[2022-01-27 06:56] LABS: Hematocrit 29.6 % (37.0-47.0); Hemoglobin 9.9 g/dL (12.2-16.2)
[2022-01-27 08:36] VITALS: BP 108/67; PULSE 80; RESP 18; TEMP 36.9; O2SAT 98
--- NOTE | 2022-01-27 10:01 | P.DS_ITS ---
General - General Admission date:: 01/26/22 Discharge date: 01/27/22 HPI - History of Present Illness History of present illness: She is a 26-year-old 3 now para 2 aborta 1 who was 39 weeks gestational age. She was feeling uncomfortable and having lots of pressure so we elected to induce her labor at term. Hospital Course Hospital Course: She was started on IV oxytocin had her membranes ruptured. Under labor epidural she progressed to full dilation and delivered spontaneously a liveborn male child at 2:36 PM in the afternoon of January 26, 2022. The baby weighed 8 pounds 5 ounces and was 20-1/2 inches long. He had Apgars of 9 at 1 minute and 9 at 5 minutes. She has done well and has remained afebrile throughout her hospitalization. She is eating and drinking and ambulating. She is breast- feeding. She has O Rh- blood and she did not receive RhoGAM as it was not necessary. She is rubella immune and was group B streptococcus negative. Her boat assembler is Dr. Weiner. She is discharged home to follow-up with me in approximately 2 weeks time. She will continue with her vitamins and iron. She was given the usual instructions with respect to limiting her activity, driving and sexual activity. Her condition on discharge is stable and improved. Rhogam Administration: Not Indicated Objective Vital signs: Temp Pulse Resp BP Pulse Ox 98.4 F 80 17 105/63 L 99 01/27/22 03:50 01/27/22 03:50 01/27/22 03:50 01/27/22 03:50 01/27/22 03:50 no acute distress - *Routine HEENT Exam Head: Present: normocephalic Eye: Present: EOMI, PERRL ENT: Present: mucous membranes moist Results Labs on day of discharge: Labs from last 24 hours 01/27/22 06:32 Hgb 9.9 L Hct 29.6 L Preliminary micro results at discharge 01/26/22 05:50 Urine Culture - Preliminary Urine,Clean Catch DS: Diagnosis - Discharge Diagnosis (1) Normal delivery at term Status: Acute Discharge Plan - Patient Discharge Instructions ACTIVITY: No heavy lifting DIET: continue same diet Additional Instructions: *No strenuous activity* *No heavy lifting* *No tub baths for 6 weeks* *NOTHING in the vagina for 6 weeks* Patient Instructions: Depression, Hemorrhage, DI for Labor and Delivery, Vaginal , DI for Pre-eclampsia, [facility] Post Disc harge Instructions, Preventing the Spread of Coronavirus Discharge Instructions - Follow up Plan Follow up with: Bruce Patel MD [Staff Physician] - Disposition: Home, Self-Care Condition at discharge:: Stable Home Medications: Home Medications Medication Instructions Recorded Confirmed Type prenat.vits,brandi,inf-vjql-lwtbe 1 tab PO DAILY #30 tab 12/05/20 01/26/22 Rx Ferrous Sulfate 325 mg PO DAILY 01/13/22 01/26/22 History Prescriptions/Medication Reconciliation: Continued prenat.vits,brandi,tox-czss-qfczx 1 tab PO DAILY #30 tab Ferrous Sulfate 325 mg PO DAILY - Problem Reconciliation Problems Reviewed?: Yes
== END 2022-01-27 18:05 | disposition home or self-care (01) | DRG 805 ==
PROVIDERS: Admitting Provider Nurse Practitioner Obstetrics & Gynecology; Visit Provider Nurse Practitioner Obstetrics & Gynecology
DX: O98.52 Other viral diseases complicating childbirth (principal); U07.1 COVID-19; Z37.0 Single live birth; O70.0 First degree perineal laceration during delivery; Z3A.39 39 weeks gestation of pregnancy; O99.334 Smoking (tobacco) complicating childbirth; F17.290 Nicotine dependence, other tobacco product, uncomplicated
CPT/HCPCS: 59409; 59025; 80305; 81001; 85014; 85018; 85025; 86850; 87086; 87581; 87632; 87798; 94761; C1758; C9803; G0283; U0003; U0005

== ENCOUNTER → 2022-03-24 14:28 | Outpatient (CLI) | payer MEDICAID, SELFPAY ==
--- NOTE | 2022-03-24 14:28 | US_ITS ---
FINAL REPORT CLINICAL HISTORY: iud surveillance and placement; right lower quad pain with IUD, patient says it feels like a pinching pain; IUD seen with in myometrium of uterus, low in uterus endometrium thickened at 2.1 cm FINDINGS: The IUD is seen low in the uterus, in the posterior myometrium. There is endometrial thickening and heterogeneity measuring up to 22 mm. The right ovary measures 3.5 x 3.0 x 1.2 cm. The left ovary measures 3.8 x 3.7 x 3.2 cm. There is a left ovarian cyst measuring 2.8 cm. Small follicles are seen in both ovaries. There is a small amount of free fluid. IMPRESSION: IUD is seen low in the uterus, in the posterior myometrium. Left ovarian cyst. Nicky Payne, public health technologist was notified of findings on 03/24/2022 at 4:18 p.m. Reviewed, Interpreted and Dictated by Edvin Gomez III, MD Transcribed by Mariella Lozano Authenticated and [facility]
== END ==
PROVIDERS: PCP Nurse Practitioner Obstetrics & Gynecology; Visit Provider Obstetrics & Gynecology
DX: Z30.431 Encounter for routine checking of intrauterine contraceptive device (principal); Z97.5 Presence of (intrauterine) contraceptive device
CPT/HCPCS: 76830

== ENCOUNTER → 2022-06-18 10:30 | Outpatient (CLI) | payer MEDICAID, SELFPAY ==
[2022-06-22 23:08] LABS: Neisseria gonorrhoeae, NAA Negative (Negative)
== END ==
LOC: LAB 06-19 06:31 → LAB.DROPOF 06-19 06:37
PROVIDERS: Visit Provider Nurse Practitioner Obstetrics & Gynecology
DX: N89.8 Other specified noninflammatory disorders of vagina (principal)
CPT/HCPCS: 87491; 87591

== ENCOUNTER → 2022-08-13 12:25 | Outpatient (CLI) | payer MEDICAID, SELFPAY ==
[2022-08-13 14:56] LABS: HCG,Quantitative 88126 mIU/ml (0-5.42)
== END ==
PROVIDERS: Visit Provider Nurse Practitioner Obstetrics & Gynecology
DX: Z32.01 Encounter for pregnancy test, result positive (principal)
CPT/HCPCS: 36415; 84702

== ENCOUNTER → 2022-08-17 16:59 | Outpatient (CLI) | payer MEDICAID, SELFPAY ==
[2022-08-20 03:36] LABS: Neisseria gonorrhoeae, NAA Negative (Negative)
== END ==
PROVIDERS: Visit Provider Nurse Practitioner Obstetrics & Gynecology
DX: Z72.51 High risk heterosexual behavior (principal)
CPT/HCPCS: 87491; 87591

== ENCOUNTER 2022-09-13 19:13 | Emergency (ER) | payer MEDICAID, SELFPAY ==
[2022-09-13 19:13] VITALS: BP 123/77; PULSE 87; RESP 17; TEMP 36.8; O2SAT 99; BMI 38.7
[2022-09-13 19:34] LABS: Microscopic, Urine URINE MICROSCOPIC (MICROSCOPIC)
[2022-09-13 19:36] LABS: Appearance,Urine CLEAR (Clear); Bilirubin,Urine Negative (Negative); Blood, Urine 3+ (Negative); Color,Urine YELLOW (Yellow); Glucose,Urine (UA) Negative (Negative); Ketones,Urine Negative (Negative); Leukocyte Esterase,Urine Negative (Negative); Nitrate,Urine Negative (Negative); Protein,Urine TRACE (Negative); Specific Gravity, Urine >= 1.030 (1.005-1.030); Urobilinogen,Urine 0.2 EU/dl (0.2)
[2022-09-13 19:38] LABS: Chloride 103 mmol/L (98-107); Sodium 139 mmol/L (136-145)
[2022-09-13 19:39] LABS: Potassium 3.4 mmoL/L (3.5-5.1)
[2022-09-13 19:40] LABS: Basophils # 0.1 K/mm3 (0-0.2); Basophils % 0.6 % (0.1-2.0); Eosinophils # 0.2 K/mm3 (0.0-0.4); Eosinophils % 1.2 % (0.1-12.0); Hematocrit 39.3 % (37.0-47.0); Lymphocytes # 2.9 K/mm3 (0.7-4.5); Lymphocytes % 18.6 % (10-50); Mean Corpuscular HGB Conc 33.1 g/dL (31.8-35.4); Mean Corpuscular Hemoglobin 29.6 pg (27.0-31.2); Mean Corpuscular Volume 89.3 fl (81-99); Mean Platelet Volume 8.1 fl (7.4-10.4); Monocytes # 0.6 K/mm3 (0.1-1.0); Monocytes % 3.8 % (1.7-9.3); Neutrophils # 11.7 K/mm3 (1.8-7.8); Neutrophils % 75.9 % (37.0-80.0); Platelet Count 237 K/mm3 (142-424); Red Cell Distribution Width 14.6 % (11.5-17.5); White Blood Count 15.4 K/mm3 (4.8-10.8)
[2022-09-13 19:41] LABS: Alanine Aminotransferase 11 U/L (12-78); Albumin Level 4.6 g/dl (3.5-5.0); Albumin/Globulin Ratio 1.3 (1.1-1.8); Alkaline Phosphatase 64 U/L (38-126); Anion Gap 12.4 mEq/L (5-15); Aspartate Amino Transferase 20 U/L (14-36); Bilirubin,Total 0.4 mg/dl (0.2-1.3); Blood Urea Nitrogen 12 mg/dl (7-17); Carbon Dioxide 27 mmol/L (22.0-30.0); Creatinine Clearance Estimated 244 mL/min (50-200); Estimated Glomerular Filt Rate 150 ml/min (>60); GFR (African American) 182 ML/MIN (>60); Globulin 3.6 g/dL (1.3-3.2); Total Protein,Serum 8.2 g/dl (6.3-8.2)
[2022-09-13 19:42] LABS: Calcium 8.8 mg/dl (8.4-10.2); Glucose 110 mg/dl (74-100); MANUAL DIFFERENTIAL MANUAL DIFFERENTIAL (MANUAL DIFF)
[2022-09-13 19:48] LABS: WBC,Urine Occasional #/hpf (0-3)
[2022-09-13 19:49] LABS: Bacteria,Urine 2+ /lpf
[2022-09-13 19:53] LABS: Lymphocytes % 22 % (10-50); Monocytes % 1 % (2-9); Neutrophils % 77 % (42-76); Platelet Estimate Normal; RBC Morphology Normal; Total Cells Counted 100
--- NOTE | 2022-09-13 20:24 | US_ITS ---
PROCEDURE INFORMATION: Exam: US , Transvaginal Exam date and time: 09/13/2022 8:52 PM Age: 27 years old Clinical indication: Lmp or gestational age (in weeks): 12w4d; Antepartum complications; Bleeding; ; Additional info: 13 wk with vaginal bleeding TECHNIQUE: Imaging protocol: Real-time transvaginal obstetrical ultrasound of the maternal pelvis with image documentation. Transvaginal imaging was used for better evaluation of the fetus, adnexa, and/or cervix. COMPARISON: US TRANSVAGINAL 03/24/2022 2:43 PM FINDINGS: Gestation: Single viable intrauterine gestation. heart rate: heart rate 155 bpm. Placenta: Small subchorionic hemorrhage adjacent to the gestational sac. Posterior placenta. BIOMETRY: Gestational age (AUA): Ultrasonographic age is 12 weeks and 1 day. MATERNAL: Right ovary/adnexa: Right ovary measures 3.7 x 2.2 x 1.6 cm. Normal vascularity. No mass. Left ovary/adnexa: Left ovary measures 3.3 x 2 x 1.6 cm. Normal vascularity. No mass. IMPRESSION: 1. Single viable intrauterine gestation 12 weeks 1 day and heart rate 155 bpm. 2. Small subchorionic hemorrhage adjacent to the gestational sac. Recommend continued follow-up with beta HCG and short-term ultrasound
--- NOTE | 2022-09-13 20:25 | HMH.EDUROGF ---
Discharge Plan Disposition Patient Disposition: Home, Self-Care Chief Complaint: Vaginal Bleeding Prescriptions Prescriptions: No Action prenat.vits,brandi,dde-drbw-[id number] Tablet 1 tab PO DAILY Qty: 30 6RF escitalopram oxalate 10 MG tablet 10 mg PO DAILY Referrals Follow up/Referrals: Provider,Referral, [Primary Care Provider] - See instructions Clinical Impressions Clinical Impression: , Vaginal bleeding before 22 weeks gestation Instructions Patient Instructions: DI for Vaginal Bleeding Discharge ED Provider: Melquiades (ED)Mika Female Urogenital HPI General Chief complaint: Vaginal Bleeding Stated complaint: 13 weeks , vaginal bleeding Time Seen by Provider: 09/13/22 20:10 Mode of Arrival: Family Vehicle Source of Information: Patient and Medical Record Limitations: No Limitations Description of Symptoms (Recalled from ER Triage Doc. by RN): Of note, pt Pt c/o vaginal bleeding that began suddenly @ 1700 tonight. She states she went to use the restroom when she discovered blood all over myself . Denies any pain, n/v/d, or fever. She reports she had a miscarriage previsously @ 6wk. She is with full term vaginal deliveries. Pt follows Dr. Patel for as her OBGYN, and she reports to be 13 wk now. Of note, pt had a IUD in place and became pregant, Dr. Patel removed her IUD on 08/17/22 and had an u/s to verify a viable intrauterine of 7wk. History of Present Illness HPI Narrative: reported 13 weeks with vag bleeding tonight Complaint: vaginal bleeding Onset (ago): hour(s) Severity: moderate : Yes Related Data Home Medications Medication Instructions Recorded Confirmed escitalopram oxalate 10 mg tablet 10 mg PO DAILY Anxiety 09/13/22 09/13/22 Previous Rx's Medication Instructions Recorded prenat.vits,brandi,abl-fnin-iiiil 1 tab PO DAILY Supplement #30 tabs 12/05/20 Allergies Allergy/AdvReac Type Severity Reaction Status Date / Time No Known Allergies Allergy Verified 08/17/22 14:46 [facility] Disclaimer: The information contained in this section may have been updated after the patient was seen, as this information can be updated by other users. Social History Smoking Status: Current every day smoker tobacco type: e-cigarettes alcohol intake: never substance use type: denies use current occupational status: other Travel in the last 8 weeks: None ROS Obtained: Yes All systems reviewed & no additional complaints except as documented Physical Exam General General appearance: alert Head Head exam: normocephalic Eye Eye exam: Present PERRL and EOMI ENT ENT exam: Present mucous membranes moist Neck Neck exam: Present trachea midline Respiratory Respiratory exam: Present normal lung sounds bilaterally; Absent respiratory distress Cardiovascular Cardiovascular exam: Present regular rate Abdominal Exam Abdominal exam: Present soft Extremities Exam Extremities exam: Present full ROM Neurological Exam Neurological exam: Present alert, oriented X3 and CN II-XII intact; Absent motor sensory deficit Psychiatric Psychiatric exam: Present normal affect Skin Skin exam: Absent rash Medical Decision Making Medical Records Medical records reviewed: Yes I reviewed the patient's medical records. Jamie Inquiry Pt receiving controlled substance: No Vital Signs: 09/13/22 19:13 Temperature 98.3 F Temperature Source Oral Pulse Rate [Right] 87 Respiratory Rate 17 Blood Pressure [Right Arm] 123/77 Blood Pressure Mean [Right Arm] 92 Blood Pressure Source [Right Arm] Automatic Cuff 02 Sat by Pulse Oximetry 99 Oxygen Delivery Method Room Air Lab Data Lab results reviewed: Yes I reviewed the patient's lab results. Lab Results 09/13/22 19:22: Urine Color Yellow, Urine Appearance Clear, Urine pH 6.0, Ur Specific [place] >= 1.030, Urine Protein Trace, Uri
--- NOTE | 2022-09-13 20:30 | PC.NURSE ---
called radiology for the need to call in on-call u/s tech.
--- NOTE | 2022-09-13 20:42 | PC.NURSE ---
pt taken to u/s room via wheelchair with technical support internship
[2022-09-13 20:44] LABS: HCG,Quantitative 84944 mIU/ml (0-5.42)
[2022-09-13 22:17] VITALS: BP 120/65; PULSE 82; RESP 18; TEMP 36.6; O2SAT 99
== END 2022-09-13 22:19 | disposition home or self-care (01) ==
PROVIDERS: Emergency Provider Emergency Medicine
DX: O46.8X1 Other antepartum hemorrhage, first trimester (principal); O99.331 Smoking (tobacco) complicating pregnancy, first trimester; U07.0 Vaping-related disorder; Z3A.12 12 weeks gestation of pregnancy
CPT/HCPCS: 76817; 80053; 81001; 84702; 85007; 85025; 87086; 96360; 96372; 99285

== ENCOUNTER → 2022-09-14 10:10 | Outpatient (CLI) | payer MEDICAID, SELFPAY | PROVIDERS: Visit Provider Nurse Practitioner Obstetrics & Gynecology | DX: Z34.90 Encounter for supervision of normal pregnancy, unspecified, unspecified trimester (principal) | CPT/HCPCS: 87086 ==

== ENCOUNTER → 2022-11-19 13:02 | Outpatient (CLI) | payer MEDICAID, SELFPAY ==
--- NOTE | 2022-11-19 13:07 | US_ITS ---
FINAL REPORT CLINICAL HISTORY: 20 week anatomy scan-- use anatomy scan template FINDINGS: There is a single live intrauterine gestation. Presentation is cephalic. The cervix is closed and measures 3.0 cm. Placenta is posterior grade 1. movement is noted. Heart rate is detected at 136 beats per minute. No gross anomalies identified. MEASUREMENTS: ULTRASOUND AGE: 20 weeks 6 days. GESTATION AGE: 20 weeks 6 days. ESTIMATED WEIGHT: 391 g GROWTH PERCENTILE: 52 % BPD: 4.73 cm corresponding to 20 weeks 3 days. OFD: 6 point 3 0 cm corresponding to 21 weeks 0 days. HC: 17.50 cm corresponding to 20 weeks 1 day. AC: 16.51 cm corresponding to 21 weeks 4 days. FL: 3.38 cm corresponding to 20 weeks 5 days. CEREBELLUM: 2.16 cm corresponding to 21 weeks 5 days. HUMERUS: 3.18 cm corresponding to 20 weeks 5 days. HC/AC: 1.06 CI: 75% FL/BPD: 71% FL/AC: 20% IMPRESSION: Single living IUP with an ultrasound age of 20 weeks 5 days. Reviewed, Interpreted and Dictated by Charles Sofia MD Transcribed by Mariella Lozano Authenticated and [facility]
[2022-11-19 15:45] LABS: Basophils % 0.3 % (0.1-2.0); Eosinophils # 0.1 K/mm3 (0.0-0.4); Eosinophils % 1.2 % (0.1-12.0); Hematocrit 36.4 % (37.0-47.0); Hemoglobin 11.3 g/dL (12.2-16.2); Lymphocytes # 2.1 K/mm3 (0.7-4.5); Lymphocytes % 17.6 % (10-50); Mean Corpuscular HGB Conc 30.9 g/dL (31.8-35.4); Mean Corpuscular Hemoglobin 29.6 pg (27.0-31.2); Mean Corpuscular Volume 95.6 fl (81-99); Mean Platelet Volume 7.6 fl (7.4-10.4); Monocytes # 0.6 K/mm3 (0.1-1.0); Monocytes % 4.7 % (1.7-9.3); Neutrophils # 9.2 K/mm3 (1.8-7.8); Neutrophils % 76.2 % (37.0-80.0); Platelet Count 204 K/mm3 (142-424); Red Blood Count 3.81 M/mm3 (4.20-5.40); Red Cell Distribution Width 14.7 % (11.5-17.5); White Blood Count 12.1 K/mm3 (4.8-10.8)
[2022-11-21 09:19] LABS: Rapid Plasma Reagin Ab Titer Non Reactive (NonRea<1:1)
[2022-11-21 16:45] LABS: HIV Screen 4th Generation wRfx Non Reactive; Hepatitis B Surface Antigen Negative
[2022-11-21 16:46] LABS: Hepatitis C Antibody Non Reactive
[2022-11-21 16:48] LABS: Rubella Antibodies, IgG 1.61
== END ==
PROVIDERS: PCP Nurse Practitioner Obstetrics & Gynecology; Visit Provider Nurse Practitioner Obstetrics & Gynecology
DX: Z34.90 Encounter for supervision of normal pregnancy, unspecified, unspecified trimester (principal); Z3A.20 20 weeks gestation of pregnancy
CPT/HCPCS: 36415; 76811; 85025; 86593; 86703; 86762; 86850; 87340; 87380; G0432

== ENCOUNTER → 2022-12-15 11:42 | Outpatient (CLI) | payer MEDICAID, SELFPAY | PROVIDERS: Visit Provider Nurse Practitioner | DX: R06.00 Dyspnea, unspecified (principal); R42 Dizziness and giddiness; R07.9 Chest pain, unspecified; R00.0 Tachycardia, unspecified | CPT/HCPCS: 93225 ==

== ENCOUNTER → 2022-12-28 14:41 | Outpatient (CLI) | payer MEDICAID, SELFPAY | PROVIDERS: Visit Provider Nurse Practitioner | DX: R06.00 Dyspnea, unspecified (principal); R00.0 Tachycardia, unspecified; R07.9 Chest pain, unspecified; R42 Dizziness and giddiness | CPT/HCPCS: 93306 ==

== ENCOUNTER → 2023-02-11 10:34 | Outpatient (CLI) | payer MEDICAID, SELFPAY ==
[2023-02-11 11:00] LABS: Basophils % 0.2 % (0.1-2.0); Eosinophils # 0.2 K/mm3 (0.0-0.4); Eosinophils % 1.5 % (0.1-12.0); Hematocrit 31.8 % (37.0-47.0); Hemoglobin 10.1 g/dL (12.2-16.2); Lymphocytes # 1.8 K/mm3 (0.7-4.5); Lymphocytes % 17.2 % (10-50); Mean Corpuscular HGB Conc 31.7 g/dL (31.8-35.4); Mean Corpuscular Hemoglobin 28.4 pg (27.0-31.2); Mean Corpuscular Volume 89.6 fl (81-99); Mean Platelet Volume 9.9 fl (7.4-10.4); Monocytes # 0.5 K/mm3 (0.1-1.0); Monocytes % 4.6 % (1.7-9.3); Neutrophils # 7.8 K/mm3 (1.8-7.8); Neutrophils % 76.5 % (37.0-80.0); Platelet Count 183 K/mm3 (142-424); Red Blood Count 3.55 M/mm3 (4.20-5.40); Red Cell Distribution Width 15.7 % (11.5-17.5); White Blood Count 10.2 K/mm3 (4.8-10.8)
== END ==
PROVIDERS: PCP Nurse Practitioner Obstetrics & Gynecology; Visit Provider Nurse Practitioner Obstetrics & Gynecology
DX: O26.893 Other specified pregnancy related conditions, third trimester (principal); O36.8130 Decreased fetal movements, third trimester, not applicable or unspecified; Z67.91 Unspecified blood type, Rh negative; Z3A.33 33 weeks gestation of pregnancy
CPT/HCPCS: 36415; 85025

== ENCOUNTER 2023-02-12 09:54 | Outpatient (CLI) | payer MEDICAID, SELFPAY ==
[2023-02-12 10:29] LABS: Glucose,Fasting 85 mg/dl (74-100)
[2023-02-12 11:40] VITALS: BP 118/78; BP 118/86; PULSE 89; RESP 18; O2SAT 96; O2SAT 97
[2023-02-12 11:47] LABS: Glucose 1 Hour 135 mg/dL (74-100)
== END 2023-02-12 11:40 | disposition home or self-care (01) ==
PROVIDERS: Visit Provider Nurse Practitioner Obstetrics & Gynecology
DX: Z34.93 Encounter for supervision of normal pregnancy, unspecified, third trimester (principal); Z3A.33 33 weeks gestation of pregnancy
CPT/HCPCS: 82951; 96372; J2790

== ENCOUNTER → 2023-02-15 15:55 | Outpatient (CLI) | payer MEDICAID, SELFPAY ==
--- NOTE | 2023-02-15 15:55 | US_ITS ---
PROCEDURE: US OB BIOPHYSICAL PROFILE CLINICAL INDICATION: lga/ decreased movement COMPARISON: FINDINGS: From her established due date she is 33weeks 3days. The following parameters are obtained: Fetus in the cephalic presentation. Average ultrasound age is 33weeks 1day. Estimated due date by ultrasound is 04/04/2023. Estimated weight is 4lb 10.59oz. 31st percentile. heart rate: 142bpm bpm. BPD: 33weeks 2days OFD: 33weeks 2days HC: 32 weeks 6 days AC: 33 weeks 1 day FL: 33 weeks 2 days HC/AC: 1.02 Cephalic index: 0.77 FL/BPD: 0.79 FL/AC: 0.22 Amniotic fluid index: 9.77cm Qualitative AFV: 2 breathing movements: 2 Gross body movements: 2 Tone: 2 Biophysical profile score: 8 No obvious anomalies evident.Kidneys, three-vessel cord appear normal. Four-chamber view appears normal. Placenta: Posterior, fundal grade 1 IMPRESSION: 1. Viable fetus in the cephalic presentation with a posterior, fundal placenta grade 1. The fluid is within normal limits. 2. Biophysical profile 03/23 with good breathing movement seen. Fetus is active. 3. There has been good interval growth. Fetus is 31st percentile. 4. Limited anatomic scan revealed no abnormalities. Dictated by: Bruce Patel MD 02/15/2023 20:20 Bruce Patel MD in OV 02/15/2023 20:20
== END ==
PROVIDERS: Visit Provider Nurse Practitioner Obstetrics & Gynecology
DX: O36.63X0 Maternal care for excessive fetal growth, third trimester, not applicable or unspecified (principal); O36.8130 Decreased fetal movements, third trimester, not applicable or unspecified; Z3A.33 33 weeks gestation of pregnancy
CPT/HCPCS: 76816; 76819

== ENCOUNTER → 2023-02-19 09:50 | Outpatient (CLI) | payer MEDICAID, SELFPAY ==
[2023-02-19 10:50] LABS: Glucose,Fasting 74 mg/dl (74-100)
[2023-02-19 12:32] LABS: Glucose 1 Hour 149 mg/dL (74-100)
[2023-02-19 13:32] LABS: Glucose 2 Hour 109 mg/dL (74-100)
[2023-02-19 16:59] LABS: Glucose 3 Hour 109 mg/dL (74-100)
== END ==
PROVIDERS: Visit Provider Nurse Practitioner Obstetrics & Gynecology
DX: Z34.93 Encounter for supervision of normal pregnancy, unspecified, third trimester (principal); Z3A.33 33 weeks gestation of pregnancy
CPT/HCPCS: 36415; 82951

== ENCOUNTER → 2023-03-11 10:48 | Outpatient (CLI) | payer MEDICAID, SELFPAY | PROVIDERS: PCP Nurse Practitioner Obstetrics & Gynecology; Visit Provider Nurse Practitioner Obstetrics & Gynecology | DX: Z34.93 Encounter for supervision of normal pregnancy, unspecified, third trimester (principal); Z3A.36 36 weeks gestation of pregnancy | CPT/HCPCS: 86403 ==

== ENCOUNTER → 2023-03-16 08:54 | Outpatient (CLI) | payer MEDICAID, SELFPAY ==
--- NOTE | 2023-03-16 08:57 | US_ITS ---
PROCEDURE: US OB BIOPHYSICAL PROFILE CLINICAL INDICATION: lga COMPARISON: 02/15/2023 FINDINGS: Transabdominal sonographic images were obtained of the uterus. From her established due date she is 37weeks 4days. The following parameters are obtained: Viable fetus in the cephalic presentation with a fundal placenta grade 2. Average ultrasound age is 37weeks 4days. Estimated due date by ultrasound is 04/02/2023. Estimated weight is 7lb 2.94oz. 61Percentile. heart rate: 139bpm bpm. BPD: 37weeks 6days OFD: 37weeks 6days HC: 36 weeks 6 days AC: 37 weeks 6 days FL: 37 weeks 3 days HC/AC: 0.96 Cephalic index: 0.83 FL/BPD: 0.78 FL/AC: 0.21 Amniotic fluid index: 8.87cm Qualitative AFV: 2 breathing movements: 2 Gross body movements: 2 Tone: 2 Biophysical profile score: 8 No obvious anomalies evident.Kidneys, four-chamber view, diaphragm, stomach, bladder, profile, three-vessel cord appear normal. IMPRESSION: 1. Viable fetus in the cephalic presentation with a fundal placenta grade 2. 2. The fluid is within normal limits. 3. Biophysical profile 03/23 with good breathing movement seen. 4. There has been good interval growth currently 61st percentile Dictated by: Bruce Patel MD 03/17/2023 08:22 Bruce Patel MD in OV 03/17/2023 08:22
== END ==
PROVIDERS: Visit Provider Nurse Practitioner Obstetrics & Gynecology
DX: O36.63X0 Maternal care for excessive fetal growth, third trimester, not applicable or unspecified (principal); Z3A.37 37 weeks gestation of pregnancy
CPT/HCPCS: 76816; 76819

== ENCOUNTER 2023-03-25 03:59 | Inpatient (IN) | payer MEDICAID, SELFPAY ==
[2023-03-25 03:57] VITALS: BMI 43.0
[2023-03-25 04:42] LABS: Microscopic, Urine URINE MICROSCOPIC (MICROSCOPIC)
--- NOTE | 2023-03-25 04:44 | EXP.OB.APHP ---
OB - H&P: HPI Antepartum History of Present Illness Chief complaint: Leakage of fluid, painful contractions History of present illness: Ms Shamika Bergeron is a 27 yo at 38w6d who presens to [facility] Labor and Delivery with complaint of painful contractions that woke her from sleep followed by leakage of fluid at 0330 this morning. Upon arrival to L&D she was grossly ruptured and 8 cm dilated per RN. She has had good care. GBS negative. History of Present Criteria for establishing EDC:: based on 1st trimester US only care: good care Ultrasounds: normal mid trimester US Obstetrical complications: none Medical complications: none Labs Blood type: O (-) negative Rubella: immune RPR/VDRL: nonreactive GBS status: negative HBsAG: negative [facility] Disclaimer: The information contained in this section may have been updated after the patient was seen, as this information can be updated by other users. Medical History (Updated 03/25/23 @ 04:56 by Jessie Gipson DO) Abnormal electrocardiogram [ECG] [EKG] Active labor Anxiety Chest pain Depression Dizziness Dyspnea with 38 completed weeks gestation Rh negative status during Spontaneous rupture of amniotic membranes Tachycardia Surgical History History of placement of ear tubes Family History Other Diabetes Stroke Social History Smoking Status: Current every day smoker tobacco type: e-cigarettes alcohol intake: never substance use type: denies use current occupational status: other Travel in the last 8 weeks: None Review of Systems Review of Systems Review of systems:: pertinent systems reviewed and negative unless documented below *Genitourinary Comments: + contractions, leakage of fluid Meds Home Medications and Allergies Home Medications Medication Instructions Recorded Confirmed Type prenat.vits,brandi,iul-qomx-zqhsf 1 tab PO DAILY Supplement #30 tabs 12/05/20 03/23/23 Rx New Prescriptions to Start Prescriptions: Allergies Allergy/AdvReac Type Severity Reaction Status Date / Time No Known Allergies Allergy Verified 03/23/23 10:28 OB - H&P: Exam Constitutional no acute distress Routine HEENT Exam Head: Present normocephalic and atraumatic Eye: Absent conjunctivae pink ENT: Present mucous membranes moist and dentition normal Routine Neck Exam Present full ROM Routine Respiratory Exam Present CTA bilaterally and normal respiratory effort Routine Cardiovascular Exam Present RRR Routine Abdominal Exam Present soft (Gravid); Absent tenderness Routine Rectal Exam Patient deferred: visual exam Routine Exam External: Present normal urethra appearance; Absent tenderness, lesions or lacerations Routine Extremities Exam Present full ROM; Absent edema or calf tenderness Routine Neurological Exam Present alert, oriented X3 and moving all extremities Routine Psychiatric Exam Present normal affect and cooperative Detailed Labor and Delivery Exam Dilation (cm): 8 Effacement (%): 90 station: -3 Consistency: soft Membranes: spontaneously ruptured (0330 on 03/25/23) Amniotic fluid: clear Baseline heart rate: 130 monitor accelerations: Present monitor decelerations: Early detention variability: Moderate (11-25) Contraction frequency (min): 5 OB - A/P Antepartum (1) with 38 completed weeks gestation: Status: Acute (2) Spontaneous rupture of amniotic membranes: Status: Acute (3) Active labor: Status: Acute (4) Rh negative status during : Status: Acute Additional Plan Planning to breastfeed?: Yes Plan: expectant management Additional Information:: Admit to L&D for spontaneous rupture of membranes and active labor GBS negative Close monitoring
[2023-03-25 04:52] LABS: Appearance,Urine CLEAR (Clear); Bilirubin,Urine Negative (Negative); Blood, Urine TRACE-I (Negative); Color,Urine YELLOW (Yellow); Glucose,Urine (UA) Negative (Negative); Ketones,Urine 1+ (Negative); Leukocyte Esterase,Urine Negative (Negative); Nitrate,Urine Negative (Negative); Protein,Urine Negative (Negative); Specific Gravity, Urine 1.015 (1.005-1.030); Urobilinogen,Urine 0.2 EU/dl (0.2)
[2023-03-25 04:54] LABS: Basophils % 0.2 % (0.1-2.0); Eosinophils # 0.1 K/mm3 (0.0-0.4); Eosinophils % 1.3 % (0.1-12.0); Hematocrit 30.6 % (37.0-47.0); Hemoglobin 9.8 g/dL (12.2-16.2); Mean Corpuscular Hemoglobin 26.9 pg (27.0-31.2); Mean Platelet Volume 9.2 fl (7.4-10.4); Monocytes # 0.5 K/mm3 (0.1-1.0); Neutrophils # 8.4 K/mm3 (1.8-7.8); Neutrophils % 76.5 % (37.0-80.0); Platelet Count 192 K/mm3 (142-424); Red Blood Count 3.64 M/mm3 (4.20-5.40); Red Cell Distribution Width 16.9 % (11.5-17.5)
[2023-03-25 05:04] LABS: Bacteria,Urine 1+ /lpf; Benzodiazepines Screen,Urine Negative ng/ml (<200); WBC,Urine Occasional #/hpf (0-3)
[2023-03-25 05:05] LABS: Amphetamine/Metha Screen,Urine Negative ng/ml (<1000); Barbiturates Screen,Urine Negative ng/ml (<200)
[2023-03-25 05:06] LABS: Methadone Screen,Urine Negative ng/ml (<300)
[2023-03-25 05:07] LABS: Cannabinoid Screen,Urine Negative ng/ml (<50); Cocaine Screen,Urine Negative ng/ml (<300)
[2023-03-25 05:08] LABS: Opiate Screen,Urine Negative ng/ml (<300)
[2023-03-25 05:09] LABS: Phencyclidine Screen,Urine Negative ng/ml (<25)
[2023-03-25 05:34] VITALS: BP 117/64; PULSE 88; RESP 20; TEMP 37; O2SAT 100; BMI 43.3
--- NOTE | 2023-03-25 06:57 | EXP.DN ---
Delivery Note Delivery Date:: 03/25/23 Delivery Time:: 06:47 Anesthesia Type: None Was labor medically induced?: No Induction method: none Gestational age (weeks): 38 delivered prior to 39 weeks?: Yes Justification for early elective delivery:: Active Labor Gender: Female at 1 minute: 4 at 5 minutes: 8 Delivery Procedure:: She is a 27-year-old 4 para 2 aborta 1 who arrived in active labor. She was augmented with oxytocin and progressed to full dilation. She delivered spontaneously a liveborn female child at 6:47 AM on the morning of March 25, 2023. Baby's head was delivered followed by the rest of the 's body atraumatically. The cord was doubly clamped and cut and infant was handed off to nurses assigned Apgars of 4 at 1 minute and 8 at 5 minutes. Cord blood was then obtained. She received IV oxytocin and using gentle traction on the cord and countertraction on the fundus the placenta easily delivered intact at 6 minutes after delivery. There were no perineal or vaginal lacerations. Blood loss was 100 cc. Placental Delivery Description: Spontaneous
--- NOTE | 2023-03-25 10:18 | EXP.ACUTE.PN ---
Subjective *Date: 03/25/23 *Time: 10:18 Interval history: She met the criteria for hemorrhage with more than 500 cc of blood loss. Medical Exam Vital signs and Labs for Last 24 Hours: Vital Signs Temp Pulse Resp BP Pulse Ox O2 Del Method 03/25/23 05:34 98.6 F 88 20 117/64 100 Room Air Intake and Output 03/24/23 03/25/23 03/25/23 19:59 03:59 11:59 Other: Weight 220 lb 222 lb Patient Weight 03/25/23 11:59 Weight 222 lb Laboratory Results - last 24 hr 03/25/23 04:10: WBC 11.0 H, RBC 3.64 L, Hgb 9.8 L, Hct 30.6 L, MCV 84.0, MCH 26.9 L, MCHC 32.0, RDW 16.9, Plt Count 192, MPV 9.2, Neut % (Auto) 76.5, Lymph % (Auto) 18.0, [place] % (Auto) 4.0, Eos % (Auto) 1.3, Baso % (Auto) 0.2, Neut # (Auto) 8.4 H, Lymph # (Auto) 2.0, [place] # (Auto) 0.5, Eos # (Auto) 0.1, Baso # (Auto) 0.0, Urine Color Yellow, Urine Appearance Clear, Urine pH 6.0, Ur Specific [place] 1.015, Urine Protein Negative, Urine Glucose (UA) Negative, Urine Ketones 1+, Urine Blood Trace-i, Urine Nitrate Negative, Urine Bilirubin Negative, Urine Urobilinogen 0.2, Ur Leukocyte Esterase Negative, Urine RBC 3-5, Urine WBC Occasional, Urine Bacteria 1+, Urine Opiates Screen Negative, Urine Methadone Screen Negative, Ur Barbituates Screen Negative, Ur Phencyclidine Scrn Negative, Ur Amphetamines Screen Negative, U Benzodiazepines Scrn Negative, Urine Cocaine Screen Negative, U Marijuana (THC) Screen Negative, Blood Type O Negative, Antibody Screen Positive I & O for Labs for Last 24 Hours: Intake & Output 03/22/23 03/23/23 03/24/23 03/25/23 11:59 11:59 11:59 11:59 Weight 222 lb Head: Present atraumatic Neck: Present normal inspection Respiratory: Present normal respiratory effort; Absent accessory muscle use Assessment and Plan *Assessment and plan (1) hemorrhage: Status: Acute Qualifiers: hemorrhage type: third-stage Qualified Code(s): O72.0 - Third-stage hemorrhage Category: Medical Code(s): O72.1 - Other immediate hemorrhage Plan She met the criteria for hemorrhage with more than 500 cc of blood loss. She has received IV oxytocin and 1 dose of Methergine. On examination the uterus is well-contracted there are no clots within the uterus and she is not actively bleeding at this point in time. She is hemodynamically stable.
[2023-03-25 15:30] VITALS: BP 123/64; PULSE 74; RESP 20; TEMP 36.5; O2SAT 98
[2023-03-25 20:14] VITALS: BP 110/57; PULSE 92; RESP 17; TEMP 36.9; O2SAT 99
[2023-03-26 06:40] LABS: Hematocrit 28.8 % (37.0-47.0); Hemoglobin 8.9 g/dL (12.2-16.2)
[2023-03-26 09:45] VITALS: BP 116/63; PULSE 88; RESP 18; TEMP 36.9
--- NOTE | 2023-03-26 11:36 | SW/DCPLANNER ---
I received a referral on this patient regarding: history of anxiety, depression, suicidal thoughts and sometimes hard to pay bills. Patient delivered female (Analy Espinoza) on 03/25/23. Patient stated that infant's father (Tom Espinoza 01/16/00) is involved. Patient, grandmother (Leila Snider) and two other children (Celio Bergeron 02/05/20 and Jose Manuel Espinoza 01/26/22) will reside at [address] [place] [address]. Patient's contact number is [phone]. Patient stated that she has not had any past Social Service involvement. Patient is currently established with [facility]. Patient is not interested in HANDS program. Patient stated that infant will follow up with Dr Weiner and will have transportation to all follow up appointments. Patient stated that she will have the following items at home: crib, carseat, clothing, diapers and will be breast feeding. Patient is expected to discharge home today. Patient has been provided an [facility] Resource list.
--- NOTE | 2023-03-26 17:10 | EXP.DC.SUM ---
General Admission date:: 03/25/23 Discharge date: 03/26/23 HPI HPI HPI: PPD # 1 s/p Patient resting comfortably in bed. Pain controlled. She is breast feeding. Voiding without difficulty and passing flatus. Tolerating regular diet. Ambulating well ad gracy. No complaints or concerns. Hospital Course Hospital Course Hospital Course: Ms Shamika Bergeron is a 27 yo at 38w6d who presens to [facility] Labor and Delivery with complaint of painful contractions that woke her from sleep followed by leakage of fluid at 0330 this morning. Upon arrival to L&D she was grossly ruptured and 8 cm dilated per RN. She has had good care. GBS negative She had normal spontaneous vaginal delivery on 03/25/23 at 0647. She delivered a live female baby, Price, weighing 8 lb 13 oz, APGARs 4, 8. EBL 100 cc. She did well . Pain controlled. Appropriate lochia. She is breast feeding. Voiding without difficulty and passing flatus. Toleratine regular diet. Vital signs stable, afebrilie. Heart was regular rate and rhythm. Lungs clear to auscultation. Abdomen soft, nontender. No lower extremity edema. Normal hospital course. Exam Data for Last 24 hours Vital signs and Labs for Last 24 Hours: Temp Pulse Resp BP Pulse Ox O2 Del Method 98.5 F 88 18 116/63 99 Room Air 03/26/23 09:45 03/26/23 09:45 03/26/23 09:45 03/26/23 09:45 03/25/23 20:14 03/25/23 20:14 Laboratory Results - last 24 hr 03/26/23 06:23: Hgb 8.9 L, Hct 28.8 L I & O for Last 24 hours: Intake & Output 03/23/23 03/24/23 03/25/23 03/26/23 23:59 23:59 23:59 23:59 Output Total 0 / 0 Balance 0 / 0 Weight 222 lb Constitutional Constitutional: no acute distress *Routine HEENT Exam Head: Present normocephalic and atraumatic Eye: Absent conjunctivae pink ENT: Present mucous membranes moist *Routine Neck Exam Neck: Present full ROM *Routine Respiratory Exam Respiratory: Present CTA bilaterally and normal respiratory effort *Routine Cardiovascular Exam Cardiovascular: Present RRR *Routine Abdominal Exam Abdominal: Present soft and normoactive bowel sounds; Absent tenderness or distended *Routine Rectal Exam Patient deferred: visual exam *Routine Exam Patient deferred: external exam *Routine Extremities Exam Extremities: Present full ROM; Absent edema or calf tenderness *Routine Neurological Exam Neurological: Present alert, oriented X3 and moving all extremities Routine Psychiatric Exam Psychiatric: Present normal affect and cooperative Results Data Completed and Pending Labs on day of discharge: Labs from last 24 hours 03/26/23 06:23 Hgb 8.9 L Hct 28.8 L Screen Pending Baby's Rh Status Pending Rhogam Infusion Pending DS: Diagnosis Discharge Diagnosis (1) with 38 completed weeks gestation: Status: Acute Code(s): Z3A.38 - 38 weeks gestation of (2) Spontaneous rupture of amniotic membranes: Status: Acute (3) Active labor: Status: Acute (4) Rh negative status during : Status: Acute Code(s): O26.899 - Other specified related conditions, unspecified trimester; Z67.91 - Unspecified blood type, Rh negative Meds Home Medications and Allergies Home Medications Medication Instructions Recorded Confirmed Type prenat.vits,brandi,haz-delk-zxijl 1 tab PO DAILY Supplement #30 tabs 12/05/20 03/25/23 Rx ibuprofen 800 mg tablet 800 mg PO Q8H PRN pain #20 tabs 03/26/23 Rx New Prescriptions to Start Prescriptions: Jessie Monahan Allergies Allergy/AdvReac Type Severity Reaction Status Date / Time No Known Allergies Allergy Verified 03/23/23 10:28 Discharge Plan Disposition Patient Disposition: Home, Self-Care Condition: Good Discharge Order Discharge Orders: Discharge Order (Routine); Ordered 03/26/23 Ordered By: Jessie Gipson Follow up Plan Follow up with: Jorge
== END 2023-03-26 18:37 | disposition home or self-care (01) | DRG 807 ==
LOC: OBOUT 04:02 → OB 04:02
PROVIDERS: Admitting Provider Obstetrics & Gynecology; Visit Provider Nurse Practitioner Obstetrics & Gynecology
DX: O99.334 Smoking (tobacco) complicating childbirth (principal); Z37.0 Single live birth; Z3A.38 38 weeks gestation of pregnancy; O72.1 Other immediate postpartum hemorrhage
CPT/HCPCS: 59409; 36415; 59025; 80305; 81001; 85014; 85018; 85025; 85461; 86850; 86870

== ENCOUNTER 2023-09-06 11:40 | Outpatient (CLI) | payer MEDICAID, SELFPAY ==
[2023-09-06 12:50] LABS: HCG,Quantitative < 2 mIU/ml (0-5.42)
== END 2023-09-06 23:59 ==
LOC: LAB 11:41
PROVIDERS: Visit Provider Nurse Practitioner Obstetrics & Gynecology
DX: N92.5 Other specified irregular menstruation (principal)
CPT/HCPCS: 36415; 84702

== ENCOUNTER 2024-07-27 22:43 | Emergency (ER) | payer MEDICAID, SELFPAY ==
[2024-07-27 22:44] VITALS: BP 138/87; PULSE 115; RESP 20; TEMP 36.9; O2SAT 100; BMI 37.8
--- NOTE | 2024-07-27 23:15 | HMH.EDGENADL ---
Discharge Plan Disposition Patient Disposition: Home, Self-Care Prescriptions Prescriptions: No Action Nexplanon 68 mg implant subdermal cephalexin 500 mg capsule 500 mg PO BID 10 Days Qty: 20 0RF docusate sodium [Dulcolax Stool Softener (dss)] 100 mg capsule 100 mg PO BID Qty: 60 2RF sertraline 50 mg tablet 50 mg PO DAILY Qty: 30 2RF linezolid [Zyvox] 600 mg tablet 600 mg PO BID 10 Days Qty: 20 0RF Referrals Follow up/Referrals: Provider,Referral, MD [Primary Care Provider] - See instructions Activity Restrictions/Add. Instructions Additional Instructions/Restrictions: Monitor for signs of infection. The staple need to be removed in 7 to 10 days. Keep wound clean and dry. Clinical Impressions Clinical Impression: Laceration of left leg Qualifiers: Encounter type: initial encounter Qualified Code(s): S81.812A - Laceration without foreign body, left lower leg, initial encounter Instructions Patient Instructions: DI for Skin Abscess Print Language Print Language: Andorran Discharge ED Provider: Regan Escobar General Adult HPI General Chief complaint: Skin/Abscess/Foreign Body Stated complaint: AO 07-27 right leg cut Time Seen by Provider: 07/27/24 23:00 Mode of Arrival: Wheelchair Source of Information: Patient Limitations: No Limitations Description of Symptoms (Recalled from ER Triage Doc. by RN): pt reports she was cutting up a pork chop when she placed the knife on the table it fell off, she went to catch the knife and it puntuced her right calf. this occured at approximately 1830. pt reports she wrapped the wound and applied pressure but the wound continued to bleed through the bandage History of Present Illness HPI narrative: 29-year-old female without significant past medical history presents for laceration to the left leg. She excellently dropped a knife onto her leg and it has been bleeding for a while. This happened this evening. She reports the knife was clean. She denies any other injuries. Related Data Home Medications ?Medication ?Instructions ?Recorded ?Confirmed etonogestrel 68 mg subdermal subdermal 06/17/23 09/23/23 implant (Nexplanon) Previous Rx's ?Medication ?Instructions ?Recorded cephalexin 500 mg capsule 500 mg PO BID 10 days #20 caps 09/17/23 docusate sodium 100 mg capsule 100 mg PO BID #60 caps 09/17/23 (Dulcolax Stool Softener (docusate)) sertraline 50 mg tablet 50 mg PO DAILY #30 tabs 09/17/23 linezolid 600 mg tablet (Zyvox) 600 mg PO BID 10 days #20 tabs 09/23/23 Allergies Allergy/AdvReac Type Severity Reaction Status Date / Time morphine Allergy Unknown Verified 09/23/23 09:44 [facility] Disclaimer: The information contained in this section may have been updated after the patient was seen, as this information can be updated by other users. Medical History (Updated 07/27/24 @ 23:16 by Regan Escobar MD) Abnormal electrocardiogram [ECG] [EKG] Dizziness Dyspnea Tachycardia Chest pain Anxiety Surgical History (Updated 09/23/23 @ 09:45 by TIERRA Gaitan) History of colonoscopy History of placement of ear tubes Family History Other Diabetes Stroke Social History Smoking Status: Current every day smoker tobacco type: e-cigarettes alcohol intake: never substance use type: denies use current occupational status: unemployed Travel in the last 8 weeks: None Have you lived/traveled outside [place] in past 30 days?: No Contact w/someone who lives/traveled outside [place] past 30 days?: No Exposure to someone with infectious disease in past 14 days?: No Do you have a fever (greater than 100.4 F or 38 C)?: No Have you tested positive for COVID-19: No Exposed to someone with COVID-19 in past 14 days?: No Do you have a sore throat?: No Do you have a cough?: No Do you have any weakness?: No Do you have any diarrhea?: No Are you experiencing any unusual bleeding?: No Do you have any muscle aches/pain?: No Do you have any abdominal pain?: No Are you experiencing loss of taste or smell?: No Other Medical History Have you received the Flu Vaccine for this season: No Have you received the Pneumonia Vaccine: No ROS Obtained: Yes All systems reviewed & no additional complaints except as documented Physical Exam General General appearance: alert and in no apparent distress Head Head exam: atraumatic and normocephalic Eye Eye exam: Present normal appearance, PERRL and EOMI ENT ENT exam: Present normal oropharynx and normal external ear exam Neck Neck exam: Present normal inspection and full ROM Chest Chest inspection: Present normal inspection and symmetric chest wall rise; Absent tenderness Respiratory Respiratory exam: Present normal lung sounds bilaterally; Absent respiratory distress Cardiovascular Cardiovascular exam: Present regular rate and normal rhythm Abdominal Exam Abdominal exam: Present soft; Absent distention, tenderness or guarding Extremities Exam Extremities exam: Present other (Approximately 1 inch laceration to the anterior lateral aspect of the left lower leg beneath the knee. Persistent low-volume bleeding noted despite pressure.); Absent edema or joint swelling Back Exam Back exam: Present normal inspection; Absent tenderness Neurological Exam Neurological exam: Present alert and oriented X3; Absent motor sensory deficit Psychiatric Psychiatric exam: Present normal affect and normal mood Skin Skin exam: Present warm, dry and normal color Lymphatic Lymphatic Findings: no adenopathy Medical Decision Making Medical Records Medical records reviewed: Yes I reviewed the patient's medical records. Screening: Per USPSTF and CDC recommendations, given the prevalence of disease in our region, it is our hospital?s policy to screen for HIV and viral Hepatitis for all patients aged 18 and over and those with ongoing risk factors. Jamie Inquiry Pt receiving controlled substance: No Jamie was queried for this patient: No Vital Signs: 07/27/24 22:44 07/27/24 23:25 Temperature 98.4 F 98.4 F Temperature Source Oral Pulse Rate 115 H Pulse Rate [Right] 115 H Respiratory Rate 20 20 Blood Pressure 138/87 Blood Pressure [Right Arm] 138/87 Blood Pressure Mean [Right Arm] 104 02 Sat by Pulse Oximetry 100 Oxygen Delivery Method Room Air Lab Data Lab results reviewed: Yes I reviewed the patient's lab results. Orders (Tests/Meds): ED MEDICATIONS Discontinued Medications Generic Name Dose Route Start Last Admin Trade Name Freq PRN Reason Stop Dose Admin Tetanus/Diphtheria Toxoids 0.5 ml 07/27/24 23:02 07/27/24 23:07 Tetanus-Diphth Toxoid, Adult 0.5ml Syr IM 07/27/24 23:03 Not Given .ONCE ONE Tetanus/Reduced Diphtheria/Acell Pertussis 0.5 ml 07/27/24 23:30 07/27/24 23:16 Tet/Diphth/Pert-Adult 0.5ml Syringe IM 07/27/24 23:31 0.5 ml .ONCE ONE Administration Medical Decision Narrative: 29-year-old female without significant past medical history presents for laceration to the left leg after she actually dropped a kitchen knife onto it. Differential diagnosis includes but limited to laceration, retained foreign body, neurovascular/ligamentous injury. On exam patient is still oozing, no evidence of retained foreign body. Patient reports that the wound knife was clean. Unclear last tetanus. She was given tetanus shot, wound was copiously irrigated and repaired with 1 staple. Hemostatic on discharge. Procedures Risk/Benefits of Procedure(s) Were Explained: Yes Laceration Laceration 1: Site: lower extremity (Left lower leg, upper aspect, anterior lateral) Size (cm): 1.5 Description: linear Depth: involves subcutaneous layer Local Anesthetic: lidocaine 1% and with epi Amount of anesthesia used (mL): 4 Pre-repair: wound explored, irrigated extensively and deep structures intact Technique: other (1 staple) Critical Care Critical Care Time Critical Care Time: No
[2024-07-27] MEDS: TET/DIPHTH/PERT-ADULT 0.5ML SYRINGE 0.5 ML IM (23:16)
[2024-07-27 23:25] VITALS: BP 138/87; PULSE 115; RESP 20; TEMP 36.9; O2SAT 100
== END 2024-07-27 23:26 | disposition home or self-care (01) ==
PROVIDERS: Emergency Provider Emergency Medicine
DX: S81.812A Laceration without foreign body, left lower leg, initial encounter (principal); M79.605 Pain in left leg; Z23 Encounter for immunization; W26.0XXA Contact with knife, initial encounter; Y93.89 Activity, other specified; Y92.000 Kitchen of unspecified non-institutional (private) residence as the place of occurrence of the external cause
CPT/HCPCS: 90471; 90715; 99283

== ENCOUNTER 2024-11-16 14:28 | Outpatient (CLI) | payer MEDICAID, SELFPAY ==
--- NOTE | 2024-11-16 14:30 | US_ITS ---
PROCEDURE: US TRANSVAGINAL CLINICAL INDICATION: Pelvic Pain COMPARISON: US US TRANSVAGINAL from 03/24/2022 FINDINGS: Transvaginal sonographic images of the pelvis were obtained. UTERUS: 7.6 cm x 5.1cmx 3.4cm anteverted with a combined endometrial thickness of 3.1mm. LEFT OVARY: 4.75 cmx3.5 cmx3.3cm with a volume of 29.1ml. There is a follicle in the left ovary that measures 3.2 cm x 3.6 cm x 2.9 cm. RIGHT OVARY: 2.6 cmx 1.5cmx1.4cm with a volume of 2.9ml. There are multiple small peripheral follicles giving the ovary a polycystic appearance. Both ovaries are seen and appear normal. Doppler flow to both ovaries are seen. There is no fluid in the cul-de-sac. IMPRESSION: 1. Anteverted uterus normal in shape and size. The endometrium is thin. 2. The left ovary contains a follicle measuring up to 3.6 cm. The right ovary has multiple peripheral follicles consistent with a polycystic ovary. 3. No fluid in the cul-de-sac. Dictated by: Bruce Patel MD 11/16/2024 15:27 Bruce Patel MD in OV 11/16/2024 15:27
== END 2024-11-16 23:59 | disposition home or self-care (01) ==
LOC: RAD 14:28
PROVIDERS: PCP Nurse Practitioner Obstetrics & Gynecology; Visit Provider Nurse Practitioner Obstetrics & Gynecology
DX: R10.2 Pelvic and perineal pain (principal); N92.1 Excessive and frequent menstruation with irregular cycle
CPT/HCPCS: 76830